=== PATIENT | female | born 1950 | race Caucasian/White ===

== ENCOUNTER → 2017-06-22 10:30 | Outpatient (CLI) | payer MEDICARE, OTHER, SELFPAY ==
--- NOTE | 2017-06-22 10:32 | HPBD_ITS ---
STUDY: DUAL ENERGY X-RAY ABSORPTIOMETRY / DXA REASON FOR EXAM: Female, 66 years old. The patient is postmenopausal. Loss of height of 2 inches. TECHNIQUE: Bone Mineral Density (BMD) measurements of lumbar spine and bilateral hips were obtained. COMPARISON: None. FINDINGS: Lumbar Spine (L1-L4): g/cm2 (1.327) / T-score (1.1) / Z-score (2.7) Findings are suggestive of normal bone density with a low fracture risk. Left Femur Total: g/cm2 (1.042) / T-score (0.3) / Z-score (1.6) Left Femoral Neck: g/cm2 (0.954) / T-score (-0.6) / Z-score (1.0) Right Femur Total: g/cm2 (0.998) / T-score (-0.1) / Z-score (1.3) Right Femoral Neck: g/cm2 (0.955) / T-score (-0.6) / Z-score (1.0) HPBD/Dexa Bone Density Study (HP) IMPRESSION: The patient is considered normal as outlined below according to World Rah Organization (WHO) criteria with a low fracture risk. Reference Information: The T-score is the number of standard deviations above or below the standard which is normal for young adults at their peak bone mineral density. The World Health Organization (WHO) interprets the T-scores as follows: Above -1 Normal bone density Between -1 and -2.5 Osteopenia Equal to / or below -2.5 Osteoporosis As a practical clinical guideline, osteopenia may be graded as follows: Mild -1 through -1.5 Moderate -1.6 through -2.0 Severe -2.1 through -2.4 The Z-score is the number of standard deviations above or below age-matched controls. A Z-score of less than -1.5 would be considered abnormal. References: 1. NIH Osteoporosis and Related Bone Diseases http://www.osteo.org 2. International Society for Clinical Densitometry http://www.iscd.org 3. National Osteoporosis Foundation http://www.nof.org Electronically Signed: Azael Bansal MD at 15:20 EST Tel [phone], Service support ,
--- NOTE | 2017-06-22 10:32 | HPBI_ITS ---
MAMMOGRAPHY - BILATERAL SCREENING REASON FOR EXAM: Female, 66 years old. Routine annual screening examination. PERTINENT HISTORY: Clear breast discharge. TECHNIQUE: Digital bilateral breast rodrigo (3D mammographic acquisition) in the CC and MLO projections. 2-D mediolateral oblique (MLO) and craniocaudad (CC) views of both breasts were obtained. CAD: Full Field Digital Mammography with Computer Added Detection was performed. COMPARISON: No comparison mammograms available at this time. If any prior films become available, an addendum to this report can be generated. FINDINGS: Breast Composition: There are scattered areas of fibroglandular density. There are no dominant masses or suspicious calcifications. Scattered bilateral calcifications. No focal cluster is seen. No other significant abnormalities are identified. HPBI/SCREENING MAMM (CAD), BILAT IMPRESSION: Negative screening mammogram. Yearly followup mammogram recommended. (A) ASSESSMENT CATEGORY: BIRADS Category 2: Benign. A letter regarding these results will be sent to the patient by the facility within 30 days. Approximately 10% of breast cancers are not detected by mammography. A normal mammogram should not delay biopsy of a clinically suspicious abnormality. [id number] Electronically Signed: Azael Bansal MD at 13:29 EST Tel [phone], Service support ,
== END ==
PROVIDERS: Family Provider Family Medicine Geriatric Medicine; PCP Family Medicine Geriatric Medicine; Visit Provider Family Medicine Geriatric Medicine
DX: Z12.31 Encounter for screening mammogram for malignant neoplasm of breast (principal); Z78.0 Asymptomatic menopausal state
CPT/HCPCS: 77063; 77067; 77080

== ENCOUNTER → 2017-08-22 11:04 | Outpatient (CLI) | payer MEDICARE, OTHER, SELFPAY ==
[2017-08-22 12:16] LABS: Absolute Lymphocyte Count 2.46 X10^3/ul (0.83-4.51); Basophil# 0.05 X10^3/uL; Basophil% 0.5 % (0-1); Eosinophil# 0.07 X10^3/uL; Eosinophils% 0.7 % (0-5); Hematocrit 45.7 % (37-47); Hemoglobin 15.3 g/dl (12.0-15.0); Lymphocyte # 2.46 X10^3/ul (4.0); Lymphocyte % 24.4 % (19-41); Mean Corp Hgb Conc 33.5 g/gl (32-36); Mean Corpuscular Hgb 29.8 pg (27.0-32.0); Mean Corpuscular Volume 89.1 fL (81-99); Monocyte# 0.55 X10^3/uL; Monocyte% 5.5 % (0-10); Neutrophil # 6.95 X10^3/uL (2.7-7.7); Neutrophil % 68.8 % (47-70); Platelet Count 275 K/mm3 (150-450); RBC Distribution Width CV 12.8 % (11.6-14.6); RBC Distribution Width SD 41.4 fl (35.1-43.9); Red Blood Count 5.13 M/mm3 (4.2-5.4); White Blood Count 10.1 K/mm3 (4.4-11.0)
[2017-08-22 12:27] LABS: POSITIVE COUNT NO; POSITIVE DIFFERENTIAL NO; POSITIVE MORPHOLOGY NO
[2017-08-22 12:28] LABS: ALB/GLOB Ratio 1.2 RATIO (0.9-2.4); AST(SGOT) 21 U/L (15-37); Alanine Aminotransfer ALT/SGPT 31 U/L (13-56); Albumin, Serum 4.3 g/dL (3.2-5.0); Alkaline Phosphatase 72 U/L (45-117); Anion Gap 11 (5-15); BUN 24 mg/dL (7-18); BUN/Creat Ratio 29.1 RATIO (10-20); Calcium,Total 9.5 mg/dL (8.5-10.1); Chloride 101 mmol/L (98-107); Creatinine, Serum 0.82 mg/dL (0.55-1.02); EST Glomerular Filtration Rate 73 mL/min (>60); Est Glom Filt Rate - Afr Amer 89 mL/min (>60); Globulin 3.6 g/dL (2.2-4.2); Glucose 187 mg/dL (74-106); Potassium 4.2 mmol/L (3.5-5.1); Protein, Total 7.9 g/dL (6.4-8.2); Sodium Level 137 mmol/L (136-145); Thyroid Stim Hormone (TSH) 1.84 uIU/mL (0.358-3.74)
[2017-08-22 12:29] LABS: Vitamin D,25 Hydroxy 43.8 ng/mL (29.95-100.01)
== END ==
PROVIDERS: Family Provider Family Medicine Geriatric Medicine; PCP Family Medicine Geriatric Medicine; Visit Provider Family Medicine Geriatric Medicine
DX: E11.9 Type 2 diabetes mellitus without complications (principal); E55.9 Vitamin D deficiency, unspecified; I10 Essential (primary) hypertension
CPT/HCPCS: 36415; 80053; 82306; 84443; 85025

== ENCOUNTER → 2018-02-06 13:43 | Outpatient (CLI) | payer MEDICARE, OTHER, SELFPAY ==
[2018-02-06 14:58] LABS: Absolute Lymphocyte Count 1.78 X10^3/ul (0.83-4.51); Absolute Neutrophil Count 5.8 X10^3/uL (2.0-7.7); Basophil# 0.03 X10^3/uL; Basophil% 0.4 % (0-1); Eosinophil# 0.04 X10^3/uL; Eosinophils% 0.5 % (0-5); Hematocrit 42.8 % (37-47); Lymphocyte # 1.78 X10^3/ul (4.0); Lymphocyte % 22.3 % (19-41); Mean Corp Hgb Conc 32.7 g/gl (32-36); Mean Corpuscular Volume 88.6 fL (81-99); Mean Platelet Vol. 10.5 fl (6.2-12.0); Monocyte# 0.38 X10^3/uL; Monocyte% 4.8 % (0-10); Neutrophil # 5.76 X10^3/uL (2.7-7.7); Neutrophil % 71.9 % (47-70); Platelet Count 254 K/mm3 (150-450); RBC Distribution Width SD 41.9 fl (35.1-43.9); Red Blood Count 4.83 M/mm3 (4.2-5.4)
[2018-02-06 14:59] LABS: POSITIVE COUNT NO; POSITIVE DIFFERENTIAL NO; POSITIVE MORPHOLOGY NO
[2018-02-06 15:21] LABS: Vitamin D,25 Hydroxy 26.8 ng/mL (29.95-100.01)
[2018-02-06 15:27] LABS: ALB/GLOB Ratio 1.1 RATIO (0.9-2.4); AST(SGOT) 27 U/L (15-37); Alanine Aminotransfer ALT/SGPT 37 U/L (13-56); Albumin, Serum 4.1 g/dL (3.2-5.0); Alkaline Phosphatase 71 U/L (45-117); Anion Gap 11 (5-15); BUN 16 mg/dL (7-18); BUN/Creat Ratio 23.4 RATIO (10-20); Calcium,Total 9.3 mg/dL (8.5-10.1); Chloride 101 mmol/L (98-107); Creatinine, Serum 0.68 mg/dL (0.55-1.02); EST Glomerular Filtration Rate 91 mL/min (>60); Est Glom Filt Rate - Afr Amer 110 mL/min (>60); Globulin 3.6 g/dL (2.2-4.2); Glucose 203 mg/dL (74-106); Potassium 4.2 mmol/L (3.5-5.1); Protein, Total 7.7 g/dL (6.4-8.2); Sodium Level 136 mmol/L (136-145); Thyroid Stim Hormone (TSH) 1.63 uIU/mL (0.358-3.74)
== END ==
PROVIDERS: Family Provider Family Medicine Geriatric Medicine; PCP Family Medicine Geriatric Medicine; Visit Provider Family Medicine Geriatric Medicine
DX: I10 Essential (primary) hypertension (principal); E11.9 Type 2 diabetes mellitus without complications; E55.9 Vitamin D deficiency, unspecified
CPT/HCPCS: 36415; 80053; 82306; 84443; 85025

== ENCOUNTER → 2018-05-25 11:31 | Outpatient (CLI) | payer MEDICARE, OTHER, SELFPAY ==
[2018-05-25 12:48] LABS: Absolute Neutrophil Count 5.4 X10^3/uL (2.0-7.7); Basophil# 0.04 X10^3/uL; Basophil% 0.5 % (0-1); Eosinophil# 0.05 X10^3/uL; Eosinophils% 0.6 % (0-5); Hematocrit 43.3 % (37-47); Hemoglobin 14.5 g/dl (12.0-15.0); Lymphocyte % 26.8 % (19-41); Mean Corp Hgb Conc 33.5 g/gl (32-36); Mean Corpuscular Hgb 29.5 pg (27.0-32.0); Mean Platelet Vol. 10.8 fl (6.2-12.0); Monocyte# 0.49 X10^3/uL; Neutrophil # 5.41 X10^3/uL (2.7-7.7); Neutrophil % 65.9 % (47-70); Platelet Count 241 K/mm3 (150-450); RBC Distribution Width CV 13.1 % (11.6-14.6); RBC Distribution Width SD 41.2 fl (35.1-43.9); Red Blood Count 4.92 M/mm3 (4.2-5.4); White Blood Count 8.2 K/mm3 (4.4-11.0)
[2018-05-25 12:50] LABS: POSITIVE COUNT NO; POSITIVE DIFFERENTIAL NO; POSITIVE MORPHOLOGY NO
[2018-05-25 12:56] LABS: Vitamin D,25 Hydroxy 18.6 ng/mL (29.95-100.01)
[2018-05-25 13:04] LABS: ALB/GLOB Ratio 1.2 RATIO (0.9-2.4); AST(SGOT) 21 U/L (15-37); Alanine Aminotransfer ALT/SGPT 35 U/L (13-56); Albumin, Serum 4.1 g/dL (3.2-5.0); Alkaline Phosphatase 67 U/L (45-117); Anion Gap 11 (5-15); BUN 20 mg/dL (7-18); BUN/Creat Ratio 28.1 RATIO (10-20); Calcium,Total 9.5 mg/dL (8.5-10.1); Chloride 102 mmol/L (98-107); Creatinine, Serum 0.71 mg/dL (0.55-1.02); EST Glomerular Filtration Rate 86 mL/min (>60); Est Glom Filt Rate - Afr Amer 105 mL/min (>60); Globulin 3.5 g/dL (2.2-4.2); Glucose 111 mg/dL (74-106); Potassium 3.8 mmol/L (3.5-5.1); Protein, Total 7.6 g/dL (6.4-8.2); Sodium Level 138 mmol/L (136-145); Thyroid Stim Hormone (TSH) 2.15 uIU/mL (0.358-3.74)
== END ==
PROVIDERS: Family Provider Family Medicine Geriatric Medicine; PCP Family Medicine Geriatric Medicine; Visit Provider Family Medicine Geriatric Medicine
DX: E11.9 Type 2 diabetes mellitus without complications (principal); E55.9 Vitamin D deficiency, unspecified; I10 Essential (primary) hypertension
CPT/HCPCS: 36415; 80053; 82306; 84443; 85025

== ENCOUNTER → 2018-06-08 07:28 | Outpatient (CLI) | payer MEDICARE, OTHER, SELFPAY ==
--- NOTE | 2018-06-08 07:32 | CT_ITS ---
STUDY: LOW DOSE CT LUNG CANCER SCREENING REASON FOR EXAM: Female, 67 years old. Previous smoker, 41 pack-year history RADIATION DOSAGE (If Supplied By Facility): CTDIvol = ( 4.02 ) mGy, DLP = ( 130.39 ) mGycm TECHNIQUE: No contrast was administered. Low dose technique was utilized Nodule measured using lung windows on PACS and/or independent workstation with automated measurement of minimum and maximum diameter. Nodule measurement reported as average diameter rounded to the nearest whole number. Growth is defined as an increase ins size of greater than 1.5 mm. COMPARISON: None. NODULES: Total lung nodules (excluding granulomas): 0 Emphysema: Moderate centrilobular emphysema of the upper lung zones. Scattered groundglass opacities (regional) with subpleural reticulation suggesting early fibrotic lung disease. Mild traction bronchiectasis noted. No honeycombing is seen. Endobronchial lesion: None Aorta: Atherosclerosis but no evidence of thoracic aortic aneurysm. Coronary arteries: Atherosclerosis. Heart: Normal heart size. No pericardial thickening Pulmonary artery: Unremarkable for unenhanced imaging. Mediastinal nodes: No mediastinal or hilar adenopathy. Other chest and abdominal findings: Peripherally calcified calcifications of the left upper abdomen adjacent to the splenic hilum could represent splenic artery aneurysms, measuring approximately 1.1 cm. There are degenerative changes of the thoracic spine. CT/Low Dose CT Lung Screening IMPRESSION: 1. Lung-RADS category 1 - Continue annual screening with LDCT in 12 months. 2. Moderate centrilobular emphysema with early interstitial fibrotic lung disease. 3. Peripheral calcified structures adjacent to the splenic hilum measuring up to 1 cm could represent small splenic artery aneurysms. IMPORTANT NOTES FOR USE: ACR Lung-RADS Version 1.0 Assessment Categories Release Date: August 27, 2013 Category: Coded 0-4 bases on nodule(s) with highest degree of suspicion. Negative screen is defined as categories 1 and 2; a positive screen is defined as categories 3 and 4. Category 3 and 4A nodules that are unchanged on interval CT should be coded as category 2, and individuals returned to screening in 12 months. Category 4X: Category 3 or 4 nodules with additional imaging findings that increase the suspicion of lung cancer, such as spiculation, GGN that doubles in size in 1 year, enlarged lymph notes, etc. Category Modifiers: S (significant finding unrelated to lung cancer) and C (prior history of treated lung cancer) may be added to the 0-4 Lung-RADS Electronically Signed: Carroll Kwon MD at 8:51 EST , Service support ,
== END ==
PROVIDERS: Family Provider Family Medicine Geriatric Medicine; PCP Family Medicine Geriatric Medicine; Referring Provider Family Medicine Geriatric Medicine; Visit Provider Family Medicine Geriatric Medicine
DX: Z87.891 Personal history of nicotine dependence (principal); Z12.2 Encounter for screening for malignant neoplasm of respiratory organs
CPT/HCPCS: G0297

== ENCOUNTER → 2018-08-23 | Outpatient (CLI) | payer MEDICARE, OTHER, SELFPAY ==
[2018-08-23 16:35] LABS: Absolute Lymphocyte Count 2.87 X10^3/ul (0.83-4.51); Absolute Neutrophil Count 7.5 X10^3/uL (2.0-7.7); Basophil# 0.05 X10^3/uL; Basophil% 0.5 % (0-1); Eosinophil# 0.11 X10^3/uL; Lymphocyte # 2.87 X10^3/ul (4.0); Lymphocyte % 25.9 % (19-41); Mean Corp Hgb Conc 32.6 g/gl (32-36); Mean Corpuscular Hgb 28.7 pg (27.0-32.0); Mean Corpuscular Volume 88.1 fL (81-99); Mean Platelet Vol. 10.8 fl (6.2-12.0); Monocyte# 0.56 X10^3/uL; Monocyte% 5.1 % (0-10); Neutrophil # 7.47 X10^3/uL (2.7-7.7); Neutrophil % 67.3 % (47-70); Platelet Count 307 K/mm3 (150-450); RBC Distribution Width CV 13.3 % (11.6-14.6); RBC Distribution Width SD 42.5 fl (35.1-43.9); Red Blood Count 4.88 M/mm3 (4.2-5.4); White Blood Count 11.1 K/mm3 (4.4-11.0)
[2018-08-23 16:41] LABS: POSITIVE COUNT NO; POSITIVE DIFFERENTIAL NO; POSITIVE MORPHOLOGY NO
[2018-08-23 17:02] LABS: Vitamin D,25 Hydroxy 20.3 ng/mL (29.95-100.01)
[2018-08-23 17:29] LABS: ALB/GLOB Ratio 1.2 RATIO (0.9-2.4); AST(SGOT) 25 U/L (15-37); Alanine Aminotransfer ALT/SGPT 41 U/L (13-56); Albumin, Serum 4.2 g/dL (3.2-5.0); Alkaline Phosphatase 73 U/L (45-117); Anion Gap 10 (5-15); BUN 16 mg/dL (7-18); BUN/Creat Ratio 24.1 RATIO (10-20); Calcium,Total 9.4 mg/dL (8.5-10.1); Chloride 104 mmol/L (98-107); Creatinine, Serum 0.66 mg/dL (0.55-1.02); EST Glomerular Filtration Rate 94 mL/min (>60); Est Glom Filt Rate - Afr Amer 114 mL/min (>60); Globulin 3.5 g/dL (2.2-4.2); Glucose 117 mg/dL (74-106); Potassium 3.8 mmol/L (3.5-5.1); Protein, Total 7.7 g/dL (6.4-8.2); Sodium Level 139 mmol/L (136-145); Thyroid Stim Hormone (TSH) 2.66 uIU/mL (0.358-3.74)
== END | disposition home or self-care (01) ==
LOC: POLAB3 14:11
PROVIDERS: Family Provider Family Medicine Geriatric Medicine; PCP Family Medicine Geriatric Medicine; Visit Provider Family Medicine Geriatric Medicine
DX: E11.9 Type 2 diabetes mellitus without complications (principal); E55.9 Vitamin D deficiency, unspecified; I10 Essential (primary) hypertension
CPT/HCPCS: 36415; 80053; 82306; 84443; 85025

== ENCOUNTER → 2018-09-18 | Outpatient (CLI) | payer MEDICARE, OTHER, SELFPAY ==
[2018-09-18 10:33] LABS: Absolute Neutrophil Count 5.9 X10^3/uL (2.0-7.7); Basophil# 0.02 X10^3/uL; Basophil% 0.3 % (0-1); Eosinophil# 0.04 X10^3/uL; Eosinophils% 0.5 % (0-5); Hematocrit 41.5 % (37-47); Hemoglobin 13.8 g/dl (12.0-15.0); Lymphocyte % 18.1 % (19-41); Mean Corp Hgb Conc 33.3 g/gl (32-36); Mean Corpuscular Hgb 28.9 pg (27.0-32.0); Mean Corpuscular Volume 86.8 fL (81-99); Mean Platelet Vol. 10.1 fl (6.2-12.0); Monocyte# 0.35 X10^3/uL; Monocyte% 4.5 % (0-10); Neutrophil # 5.91 X10^3/uL (2.7-7.7); Neutrophil % 76.5 % (47-70); Platelet Count 245 K/mm3 (150-450); RBC Distribution Width CV 13.6 % (11.6-14.6); RBC Distribution Width SD 42.2 fl (35.1-43.9); Red Blood Count 4.78 M/mm3 (4.2-5.4); White Blood Count 7.7 K/mm3 (4.4-11.0)
[2018-09-18 10:36] LABS: POSITIVE COUNT NO; POSITIVE DIFFERENTIAL NO; POSITIVE MORPHOLOGY NO
[2018-09-18 10:43] LABS: International Normalized Ratio 1.1; Partial Thromboplast Time 29.4 Seconds (24.1-36.2); Prothrombin Time (Protime)PT. 13.7 SECONDS (11.7-14.9)
[2018-09-18 11:37] LABS: AST(SGOT) 36 U/L (15-37); Alanine Aminotransfer ALT/SGPT 45 U/L (13-56); Albumin, Serum 3.7 g/dL (3.2-5.0); Alkaline Phosphatase 55 U/L (45-117); Anion Gap 9 (5-15); BUN 19 mg/dL (7-18); Calcium,Total 8.9 mg/dL (8.5-10.1); Chloride 110 mmol/L (98-107); Cholesterol 89 mg/dL (200); Creatinine, Serum 0.91 mg/dL (0.55-1.02); EST Glomerular Filtration Rate 65 mL/min (>60); Est Glom Filt Rate - Afr Amer 79 mL/min (>60); Ferritin 150 ng/mL (8-252); Globulin 3.6 g/dL (2.2-4.2); Glucose 149 mg/dL (74-106); High Density Lipoprotein 41 mg/dL; Iron 70 ug/dL (50-170); Iron Binding Capacity,Total 360 ug/dL (250-450); Potassium 3.8 mmol/L (3.5-5.1); Protein, Total 7.3 g/dL (6.4-8.2); Sodium Level 142 mmol/L (136-145); Thyroid Stim Hormone (TSH) 1.03 uIU/mL (0.358-3.74); Triglycerides 96 mg/dL; Very Low Density Lipoprotein 19 mg/dL (5-40)
[2018-09-18 12:22] LABS: Hemoglobin A1c 7.7 % (4.2-6.3)
[2018-09-21 15:20] LABS: Vitamin B1, Thiamine 253.3 nmol/L (66.5-200.0)
== END | disposition home or self-care (01) ==
PROVIDERS: Family Provider Family Medicine Geriatric Medicine; PCP Family Medicine Geriatric Medicine
DX: E61.1 Iron deficiency (principal); E78.5 Hyperlipidemia, unspecified; R73.9 Hyperglycemia, unspecified; E07.9 Disorder of thyroid, unspecified; E53.8 Deficiency of other specified B group vitamins; E55.9 Vitamin D deficiency, unspecified; R79.1 Abnormal coagulation profile; E51.9 Thiamine deficiency, unspecified
CPT/HCPCS: 36415; 80053; 80061; 82728; 83036; 83540; 83550; 84425; 84443; 85025; 85610; 85730

== ENCOUNTER 2018-09-27 20:48 | Emergency (ER) | payer MEDICARE, OTHER, SELFPAY ==
[2018-09-27 10:17] VITALS: BMI 37.1
[2018-09-27 20:49] VITALS: BP 151/77; PULSE 82; RESP 18; TEMP 36.6; O2SAT 95; BMI 37.2
[2018-09-27 21:05] VITALS: BP 144/93; PULSE 77; RESP 20; O2SAT 95
[2018-09-27] MEDS: Clindamycin HCl 150 MG Capsule 300 MG PO (21:17)
--- NOTE | 2018-09-27 21:24 | ED.VIS.UPPEX ---
History of Present Illness Chief Complaint: Laceration Informant: Patient Occurred: Today - 1300 Mechanism/Context: Injury, Incised Current Severity: Mild Maximum Severity: Moderate Worsened by: Applying powder and wound Relieved by: Eating stop after application of powder Associated Symptoms: Negative for: Parasthesia, Weakness, Loss of Funtion Tetanus Immunization: <5 years Prior similar symptoms: No Recent Illness/Hospitalization: No - Past Medical History (1) Essential (primary) hypertension Status: Chronic (2) HLD (hyperlipidemia) Status: Chronic (3) Morbid obesity Status: Chronic (4) Osteoarthritis Status: Chronic Past Medical History - Allergies and Home Meds Allergies/Adverse Reactions: Allergies No Known Allergies Allergy (Verified 09/27/18 20:48) Primary Care Physician: Matt Hernandez Chi, MD [Primary Care Provider] - Prior records reviewed: Yes Surgical History: appendectomy, - - Lateral tubal ligation Lives: Alone Smoking Status: Former smoker Alcohol: None Review of Systems General: Denies: Chills, Fever, Malaise, Subjective, Sweats, Weight loss, - Skin: Reports: Wounds. Denies: Rash Neurological: Denies: Headache, Weakness, Parasthesia, Numbness, -, - Hematologic: Denies: Easy bruising, Easy bleeding Allergy: Denies: Uticaria, Swelling of the mouth Physical Exam Vital Signs/Narrative: Vital Signs Temp Pulse Resp BP Pulse Ox 09/27/18 21:05 77 20 H 144/93 H 95 09/27/18 20:49 97.9 F 82 18 151/77 H 95 Inital Vital Signs reviewed: Yes Left Wrist: Negative for: Abrasion, Contusion, Deformity, Edema, Hematoma, Limited ROM, - Left Hand: - - 3 cm gaping laceration thenar eminence left hand that appears infected. There is also a clotting factor that patient poured onto the wound noted and the wound is black. There is no evidence of cellulitis. Full active range of motion of the thumb and index finger. Normal two-point discrimination. Capillary refill is normal.. Negative for: Abrasion, Contusion, Deformity, Edema, Hematoma, Limited ROM Left Finger: Negative for: Abrasion, Contusion, Deformity, Edema, Hematoma, Limited ROM, - General: Well nourished, Well developed Head: Normocephalic, Atraumatic Eyes: Perrl, EOMI Cardiovascular: Regular rate, Regular rhythm Respiratory: No distress Neurological: Alert, Oriented x3, Cranial nerves II-XII grossly intact, Normal Strength, Normal Sensation, Normal Gait Psychological: Normal affect, Normal Mood Diagnostic/Tx/Re-eval - Medical Decision Making Patient has a wound which occurred hours before presentation. Because she wore a powder into it the wound is not clean and concern for early infection. There is no neurovascular findings. The wound was cleansed. She received first dose of Clinda mycin department and discharged with prescription Coly-Mycin. She states this cannot be closed for 5 to 7 days. She would need to see a surgeon for delayed repair versus allowing it to granulate in which may take 2 to 4 weeks. ED Disposition - Plan for ED Patient: Disposition: Home or Assisted Living Diagnosis: Laceration of left hand with infection Instructions: ED Laceration Infec Not Sutrd Prescriptions: Clindamycin HCl [Cleocin] 300 mg PO Q6H #20 capsule Referrals: Matt Hernandez Chi, MD [Primary Care Provider] - 2 Days for wound check Additional Instructions: Your prescription was electronically transmitted to [facility] pharmacy located on back [facility].
[2018-09-27 21:51] VITALS: BP 134/92; PULSE 83; RESP 17; O2SAT 98
== END 2018-09-27 21:51 | disposition home or self-care (01) ==
PROVIDERS: Emergency Provider Emergency Medicine; Family Provider Family Medicine Geriatric Medicine; PCP Family Medicine Geriatric Medicine
DX: S61.412A Laceration without foreign body of left hand, initial encounter (principal); L08.9 Local infection of the skin and subcutaneous tissue, unspecified; I10 Essential (primary) hypertension; E66.01 Morbid (severe) obesity due to excess calories; M19.90 Unspecified osteoarthritis, unspecified site; Z87.891 Personal history of nicotine dependence; E78.5 Hyperlipidemia, unspecified; Z79.82 Long term (current) use of aspirin; Z79.899 Other long term (current) drug therapy; W45.8XXA Other foreign body or object entering through skin, initial encounter; Y93.89 Activity, other specified; Y92.89 Other specified places as the place of occurrence of the external cause; Y99.8 Other external cause status
CPT/HCPCS: 99283; A4216

== ENCOUNTER → 2018-10-02 | Outpatient (CLI) | payer MEDICARE, OTHER, SELFPAY ==
[2018-09-27 20:49] VITALS: BMI 37.2
--- NOTE | 2018-10-02 07:16 | CPS ---
Patient states PFT is for pre-op testing which the order states as well. Patient does not want to take the albuterol aerosol if it isn't necessary. Order does not indicate that a bronchodilator needs to be administered nor does it state to have a complete test with bronchodilator.
--- NOTE | 2018-10-03 07:39 | PFT ---
INTRODUCTION: The patient is a 68-year-old female that presents for pulmonary function studies secondary to a diagnosis of shortness of breath. Respiratory therapy reports good patient effort. Bronchodilators were not administered with testing. INTERPRETATION: Forced expiration spirometry demonstrates no evidence of a large airways obstructive ventilatory defect. Spirograms are of good quality and plateau normally. The respiratory flow volume loop appears normal. Body plethysmography revealed normal lung volumes. Diffusing capacity by single breath CO is mildly reduced at 61% of predicted. IMPRESSION: Isolated mild reduction in diffusing capacity, which could be related to an early pulmonary vascular disorder such as pulmonary hypertension. Clinical correlation is recommended.
== END | disposition home or self-care (01) ==
LOC: PSN 06:18
PROVIDERS: Family Provider Family Medicine Geriatric Medicine; PCP Family Medicine Geriatric Medicine; Referring Provider Family Medicine Geriatric Medicine; Visit Provider Family Medicine Geriatric Medicine
DX: R06.02 Shortness of breath (principal)
CPT/HCPCS: 94010; 94726; 94729

== ENCOUNTER → 2018-10-17 | Outpatient (CLI) | payer MEDICARE, OTHER, SELFPAY ==
[2018-09-27 20:49] VITALS: BMI 37.2
--- NOTE | 2018-10-17 14:27 | ECHOD_ITS ---
Reason For Study: SOB Procedure This was a 2D Doppler, Color Flow transthoracic echocardiogram. The study was technically difficult. Exam performed in department. Left Ventricle Normal LV size. Left ventricular systolic function is normal. The estimated ejection fraction is 65 %. There is evidence of diastolic dysfunction. No regional wall motion abnormalities noted. Right Ventricle Normal RV size. Normal systolic function. Atria The left atrium is moderately enlarged. Normal right atrium. No doppler evidence for ASD. Mitral Valve There is mild mitral annular calcification. Extension of the mitral annular calcification onto the posterior mitral valve leaflet. Mild mitral valve stenosis. Trivial mitral valve insufficiency. Tricuspid Valve Normal tricuspid valve. Trivial tricuspid valve insufficiency. Unable to estimate RV systolic pressure/pulmonary artery pressure due to technically difficult study. Aortic Valve Trisinus/trileaflet aortic valve. Mild focal aortic valve calcification. Pulmonic Valve The pulmonic valve is not well visualized. Great Vessels Normal sized aortic root. Pericardium/Pleural No pericardial effusion. MMode/2D Measurements & Calculations LVIDd: 3.1 cm IVSd: 1.2 cm Ao root diam: 3.8 cm LVIDs: 2.1 cm LVPWd: 1.1 cm LA dimension: 3.6 cm RVDd: 3.5 cm FS: 31.9 % LAV(MOD-bp): 77.4 ml LA A4 area: 24.2 cm2 RA A4 area: 18.5 cm2 LAV(MOD-bp) Indexed: 40.6 ml/m2 LAV(MOD-sp2): 77.6 ml LAV(MOD-sp4): 77.7 ml Time Measurements MV dec time: 0.42 sec Doppler Measurements & Calculations MV E max rajesh: 87.9 cm/sec Lat Peak E' Rajesh: 9.7 cm/sec Med Peak E' Rajesh: 5.9 cm/sec MV A max rajesh: 160.2 cm/sec E/E' lat: 9.1 E/E' med: 14.8 MV E/A: 0.55 MV V2 max: 190.7 cm/sec MV P1/2t max rajesh: 110.7 cm/sec Ao V2 max: 151.0 cm/sec MV max P.5 mmHg MV P1/2t: 129.4 msec Ao max P.1 mmHg MV V2 mean: 88.5 cm/sec MV dec slope: 250.7 cm/sec2 MV mean P.8 mmHg MVA(P1/2t): 1.7 cm2 MV V2 VTI: 46.7 cm LV V1 max: 100.8 cm/sec PA V2 max: 99.2 cm/sec LV V1 max P.1 mmHg Interpretation Summary The study was technically difficult. Left ventricular systolic function is normal. The estimated ejection fraction is 65 %. The left atrium is moderately enlarged. There is mild mitral annular calcification. Extension of the mitral annular calcification onto the posterior mitral valve leaflet. Mild mitral valve stenosis. Trivial mitral valve insufficiency. Trivial tricuspid valve insufficiency. Mild focal aortic valve calcification. Unable to estimate RV systolic pressure/pulmonary artery pressure due to technically difficult study. There is evidence of diastolic dysfunction. Ordering Physician: Matt Hernandez Referring Physician: Matt Hernandez Chi Performed By: Moo Navarrete RCS
== END | disposition home or self-care (01) ==
LOC: CVS 14:25
PROVIDERS: Family Provider Family Medicine Geriatric Medicine; PCP Family Medicine Geriatric Medicine; Referring Provider Family Medicine Geriatric Medicine; Visit Provider Family Medicine Geriatric Medicine
DX: R06.02 Shortness of breath (principal)
CPT/HCPCS: 93306

== ENCOUNTER → 2018-11-03 | Outpatient (CLI) | payer MEDICARE, OTHER, SELFPAY ==
[2018-11-03 11:34] LABS: Vitamin B12 707 pg/mL (211-911)
== END | disposition home or self-care (01) ==
PROVIDERS: Family Provider Family Medicine Geriatric Medicine; PCP Family Medicine Geriatric Medicine
DX: E53.8 Deficiency of other specified B group vitamins (principal)
CPT/HCPCS: 36415; 82607

== ENCOUNTER → 2018-11-21 | Outpatient (CLI) | payer MEDICARE, OTHER, SELFPAY ==
[2018-11-21 17:12] LABS: Absolute Lymphocyte Count 2.05 X10^3/uL (0.83-4.51); Absolute Neutrophil Count 6.8 X10^3/uL (2.0-7.7); Basophil# 0.06 X10^3/uL; Basophil% 0.6 % (0-1); Eosinophil# 0.04 X10^3/uL; Eosinophils% 0.4 % (0-5); Hematocrit 42.4 % (37-47); Hemoglobin 13.8 g/dL (12.0-15.0); Lymphocyte # 2.05 X10^3/ul (4.0); Lymphocyte % 21.6 % (19-41); Mean Corp Hgb Conc 32.5 g/dL (32-36); Mean Corpuscular Hgb 29.5 pg (27.0-32.0); Mean Corpuscular Volume 90.6 fL (81-99); Mean Platelet Vol. 10.9 fl (6.2-12.0); Monocyte# 0.52 X10^3/uL; Monocyte% 5.5 % (0-10); NRBC Flagged by Analyzer 0 % (0-5); Neutrophil # 6.78 X10^3/uL (2.7-7.7); Neutrophil % 71.5 % (47-70); Platelet Count 230 K/mm3 (150-450); RBC Distribution Width CV 13.2 % (11.6-14.6); RBC Distribution Width SD 43.5 fl (35.1-43.9); Red Blood Count 4.68 M/mm3 (4.2-5.4); White Blood Count 9.5 K/mm3 (4.4-11.0)
[2018-11-21 17:56] LABS: ALB/GLOB Ratio 1.1 RATIO (0.9-2.4); AST(SGOT) 23 U/L (15-37); Alanine Aminotransfer ALT/SGPT 30 U/L (13-56); Albumin, Serum 3.9 g/dL (3.2-5.0); Alkaline Phosphatase 63 U/L (45-117); Anion Gap 12 (5-15); BUN 22 mg/dL (7-18); Calcium,Total 9.2 mg/dL (8.5-10.1); Chloride 107 mmol/L (98-107); Creatinine, Serum 0.76 mg/dL (0.55-1.02); EST Glomerular Filtration Rate 80 mL/min (>60); Est Glom Filt Rate - Afr Amer 97 mL/min (>60); Globulin 3.4 g/dL (2.2-4.2); Glucose 212 mg/dL (74-106); Potassium 3.9 mmol/L (3.5-5.1); Protein, Total 7.3 g/dL (6.4-8.2); Sodium Level 140 mmol/L (136-145); Thyroid Stim Hormone (TSH) 2.15 uIU/mL (0.358-3.74)
[2018-11-21 18:09] LABS: Vitamin D,25 Hydroxy 17.4 ng/mL (29.95-100.01)
== END | disposition home or self-care (01) ==
LOC: POLAB3 08:46
PROVIDERS: Family Provider Family Medicine Geriatric Medicine; PCP Family Medicine Geriatric Medicine; Visit Provider Family Medicine Geriatric Medicine
DX: E11.9 Type 2 diabetes mellitus without complications (principal); E55.9 Vitamin D deficiency, unspecified; I10 Essential (primary) hypertension
CPT/HCPCS: 36415; 80053; 82306; 84443; 85025

== ENCOUNTER → 2019-01-11 | Outpatient (CLI) | payer MEDICARE, OTHER, SELFPAY ==
--- NOTE | 2019-01-11 10:15 | RAD_ITS ---
STUDY: X-RAY CHEST REASON FOR EXAM: Female, 68 years old. Sleep apnea. TECHNIQUE: PA and lateral views of the chest. COMPARISON: Chest CT, June 08, 2018. FINDINGS: The lungs are hyperexpanded with chronic interstitial changes. There is no new mass or infiltrate. There is no demonstrated pleural abnormality. Normal size heart. Normal mediastinum and gertrude. Normal visualized pulmonary arteries. Normal visualized aortic arch and descending thoracic aorta. There is mild levoscoliosis of the thoracic spine with degenerative changes. There is degenerative osteoarthritis of the bilateral shoulders. There is no demonstrated abnormality of the visualized soft tissue structures of the upper abdomen. RAD/Chest PA and Lateral IMPRESSION: COPD versus emphysema. There is no acute pulmonary disease. Electronically Signed: Anson Whitman DO at 21:32 EDT Tel [phone], Service support ,
== END | disposition home or self-care (01) ==
LOC: RAD 10:01
PROVIDERS: Family Provider Family Medicine Geriatric Medicine; PCP Family Medicine Geriatric Medicine
DX: G47.30 Sleep apnea, unspecified (principal); I10 Essential (primary) hypertension
CPT/HCPCS: 71046

== ENCOUNTER → 2019-02-21 | Outpatient (CLI) | payer MEDICARE, OTHER, SELFPAY ==
[2019-02-21 12:50] LABS: Absolute Lymphocyte Count 2.24 X10^3/uL (0.83-4.51); Absolute Neutrophil Count 6.9 X10^3/uL (2.0-7.7); Basophil# 0.06 X10^3/uL; Basophil% 0.6 % (0-1); Eosinophil# 0.08 X10^3/uL; Eosinophils% 0.8 % (0-5); Hematocrit 42.2 % (37-47); Hemoglobin 13.8 g/dL (12.0-15.0); Lymphocyte # 2.24 X10^3/ul (4.0); Lymphocyte % 22.7 % (19-41); Mean Corp Hgb Conc 32.7 g/dL (32-36); Mean Corpuscular Hgb 28.7 pg (27.0-32.0); Mean Corpuscular Volume 87.7 fL (81-99); Mean Platelet Vol. 11.2 fl (6.2-12.0); Monocyte% 6.1 % (0-10); NRBC Flagged by Analyzer 0 % (0-5); Neutrophil # 6.85 X10^3/uL (2.7-7.7); Neutrophil % 69.6 % (47-70); Platelet Count 305 K/mm3 (150-450); RBC Distribution Width CV 13.2 % (11.6-14.6); RBC Distribution Width SD 41.8 fl (35.1-43.9); Red Blood Count 4.81 M/mm3 (4.2-5.4); White Blood Count 9.9 K/mm3 (4.4-11.0)
[2019-02-21 13:13] LABS: ALB/GLOB Ratio 1.4 RATIO (0.9-2.4); AST(SGOT) 26 U/L (15-37); Alanine Aminotransfer ALT/SGPT 39 U/L (13-56); Albumin, Serum 4.3 g/dL (3.2-5.0); Alkaline Phosphatase 55 U/L (45-117); Anion Gap 12 (5-15); BUN 14 mg/dL (7-18); BUN/Creat Ratio 17.3 RATIO (10-20); Calcium,Total 9.5 mg/dL (8.5-10.1); Chloride 106 mmol/L (98-107); Creatinine, Serum 0.81 mg/dL (0.55-1.02); EST Glomerular Filtration Rate 75 mL/min (>60); Est Glom Filt Rate - Afr Amer 90 mL/min (>60); Globulin 3.1 g/dL (2.2-4.2); Glucose 108 mg/dL (74-106); Potassium 3.9 mmol/L (3.5-5.1); Protein, Total 7.4 g/dL (6.4-8.2); Sodium Level 140 mmol/L (136-145); Thyroid Stim Hormone (TSH) 2.38 uIU/mL (0.358-3.74)
== END | disposition home or self-care (01) ==
LOC: POLAB3 11:42
PROVIDERS: Family Provider Family Medicine Geriatric Medicine; PCP Family Medicine Geriatric Medicine; Visit Provider Family Medicine Geriatric Medicine
DX: E11.9 Type 2 diabetes mellitus without complications (principal); E55.9 Vitamin D deficiency, unspecified; I10 Essential (primary) hypertension
CPT/HCPCS: 36415; 80053; 82306; 84443; 85025

== ENCOUNTER → 2019-05-22 09:27 | Outpatient (CLI) | payer MEDICARE, OTHER, SELFPAY ==
[2019-05-22 09:58] LABS: Absolute Lymphocyte Count 1.21 X10^3/uL (0.83-4.51); Absolute Neutrophil Count 4.3 X10^3/uL (2.0-7.7); Basophil# 0.04 X10^3/uL; Basophil% 0.7 % (0-1); Eosinophil# 0.02 X10^3/uL; Eosinophils% 0.3 % (0-5); Hemoglobin 13.6 g/dL (12.0-15.0); Lymphocyte # 1.21 X10^3/ul (4.0); Lymphocyte % 20.6 % (19-41); Mean Corp Hgb Conc 32.4 g/dL (32-36); Mean Corpuscular Volume 89.6 fL (81-99); Mean Platelet Vol. 10.6 fl (6.2-12.0); Monocyte# 0.31 X10^3/uL; Monocyte% 5.3 % (0-10); NRBC Flagged by Analyzer 0 % (0-5); Neutrophil # 4.27 X10^3/uL (2.7-7.7); Neutrophil % 72.9 % (47-70); Platelet Count 186 K/mm3 (150-450); RBC Distribution Width CV 12.7 % (11.6-14.6); RBC Distribution Width SD 41.2 fl (35.1-43.9); Red Blood Count 4.69 M/mm3 (4.2-5.4); White Blood Count 5.9 K/mm3 (4.4-11.0)
[2019-05-22 10:39] LABS: PTHIN 49.3 pg/mL (18.4-80.1)
[2019-05-22 10:40] LABS: Vitamin B12 493 pg/mL (211-911); Vitamin D,25 Hydroxy 26.2 ng/mL (29.95-100.01)
[2019-05-22 11:22] LABS: ALB/GLOB Ratio 1.2 RATIO (0.9-2.4); AST(SGOT) 17 U/L (15-37); Alanine Aminotransfer ALT/SGPT 24 U/L (13-56); Albumin, Serum 3.9 g/dL (3.2-5.0); Alkaline Phosphatase 88 U/L (45-117); Anion Gap 6 (5-15); BUN 14 mg/dL (7-18); BUN/Creat Ratio 18.8 RATIO (10-20); Calcium,Total 9.4 mg/dL (8.5-10.1); Chloride 104 mmol/L (98-107); Creatinine, Serum 0.74 mg/dL (0.55-1.02); EST Glomerular Filtration Rate 82 mL/min (>60); Est Glom Filt Rate - Afr Amer 99 mL/min (>60); Ferritin 110 ng/mL (8-252); Globulin 3.2 g/dL (2.2-4.2); Glucose 133 mg/dL (74-106); Iron 65 ug/dL (50-170); Iron Binding Capacity,Total 323 ug/dL (250-450); Potassium 3.7 mmol/L (3.5-5.1); Protein, Total 7.1 g/dL (6.4-8.2); Sodium Level 136 mmol/L (136-145)
[2019-05-25 03:06] LABS: Vitamin B1, Thiamine 135.2 nmol/L (66.5-200.0)
[2019-05-25 09:22] LABS: Copper, Serum or Plasma 108 ug/dL (72-166)
== END ==
PROVIDERS: PCP Family Medicine Geriatric Medicine; Visit Provider Family Medicine Geriatric Medicine
DX: E55.9 Vitamin D deficiency, unspecified (principal); E53.8 Deficiency of other specified B group vitamins; Z98.84 Bariatric surgery status; D64.9 Anemia, unspecified; K90.9 Intestinal malabsorption, unspecified
CPT/HCPCS: 36415; 80053; 82306; 82525; 82607; 82728; 82746; 83540; 83550; 83970; 84425; 85025

== ENCOUNTER → 2019-10-16 11:02 | Outpatient (CLI) | payer MEDICARE, OTHER, SELFPAY | PROVIDERS: PCP Family Medicine Geriatric Medicine | DX: E55.9 Vitamin D deficiency, unspecified (principal) | CPT/HCPCS: 36415; 82306 ==

== ENCOUNTER → 2019-11-28 13:11 | Outpatient (CLI) | payer MEDICARE, OTHER, SELFPAY ==
[2019-11-28 16:37] LABS: Absolute Lymphocyte Count 1.82 X10^3/uL (0.83-4.51); Absolute Neutrophil Count 3.8 X10^3/uL (2.0-7.7); Basophil# 0.05 X10^3/uL; Basophil% 0.8 % (0-1); Eosinophils% 1.6 % (0-5); Hematocrit 40.4 % (37-47); Hemoglobin 13.1 g/dL (12.0-15.0); Lymphocyte # 1.82 X10^3/ul (4.0); Lymphocyte % 29.5 % (19-41); Mean Corp Hgb Conc 32.4 g/dL (32-36); Mean Corpuscular Hgb 29.4 pg (27.0-32.0); Mean Corpuscular Volume 90.8 fL (81-99); Mean Platelet Vol. 10.6 fl (6.2-12.0); Monocyte# 0.38 X10^3/uL; Monocyte% 6.2 % (0-10); NRBC Flagged by Analyzer 0 % (0-5); Neutrophil % 61.7 % (47-70); Platelet Count 228 K/mm3 (150-450); RBC Distribution Width CV 12.8 % (11.6-14.6); RBC Distribution Width SD 42.1 fl (35.1-43.9); Red Blood Count 4.45 M/mm3 (4.2-5.4); White Blood Count 6.2 K/mm3 (4.4-11.0)
[2019-11-28 16:52] LABS: Vitamin D,25 Hydroxy 53.1 ng/mL
[2019-11-28 17:00] LABS: ALB/GLOB Ratio 1.3 RATIO (0.9-2.4); AST(SGOT) 18 U/L (15-37); Alanine Aminotransfer ALT/SGPT 33 U/L (13-56); Alkaline Phosphatase 93 U/L (45-117); Anion Gap 5 (5-15); BUN 19 mg/dL (7-18); BUN/Creat Ratio 30.6 RATIO (10-20); Chloride 108 mmol/L (98-107); Creatinine, Serum 0.62 mg/dL (0.55-1.02); EST Glomerular Filtration Rate 101 mL/min (>60); Est Glom Filt Rate - Afr Amer 122 mL/min (>60); Globulin 3.1 g/dL (2.2-4.2); Glucose 116 mg/dL (74-106); Potassium 4.2 mmol/L (3.5-5.1); Protein, Total 7.1 g/dL (6.4-8.2); Sodium Level 139 mmol/L (136-145)
== END ==
PROVIDERS: PCP Family Medicine Geriatric Medicine; Visit Provider Family Medicine Geriatric Medicine
DX: E11.9 Type 2 diabetes mellitus without complications (principal); E55.9 Vitamin D deficiency, unspecified; I10 Essential (primary) hypertension
CPT/HCPCS: 36415; 80053; 82306; 84443; 85025

== ENCOUNTER → 2020-05-29 12:59 | Outpatient (CLI) | payer MEDICARE, OTHER, SELFPAY ==
[2020-05-29 17:27] LABS: Absolute Lymphocyte Count 1.31 X10^3/uL (0.83-4.51); Absolute Neutrophil Count 4.8 X10^3/uL (2.0-7.7); Basophil# 0.05 X10^3/uL; Basophil% 0.8 % (0-1); Eosinophil# 0.07 X10^3/uL; Eosinophils% 1.1 % (0-5); Hematocrit 43.4 % (37-47); Hemoglobin 14.2 g/dL (12.0-15.0); Lymphocyte # 1.31 X10^3/ul (4.0); Lymphocyte % 19.8 % (19-41); Mean Corp Hgb Conc 32.7 g/dL (32-36); Mean Corpuscular Hgb 28.9 pg (27.0-32.0); Mean Corpuscular Volume 88.2 fL (81-99); Mean Platelet Vol. 10.7 fl (6.2-12.0); Monocyte# 0.38 X10^3/uL; Monocyte% 5.8 % (0-10); NRBC Flagged by Analyzer 0 % (0-5); Neutrophil # 4.78 X10^3/uL (2.7-7.7); Neutrophil % 72.3 % (47-70); Platelet Count 229 K/mm3 (150-450); RBC Distribution Width CV 12.6 % (11.6-14.6); RBC Distribution Width SD 40.7 fl (35.1-43.9); Red Blood Count 4.92 M/mm3 (4.2-5.4); White Blood Count 6.6 K/mm3 (4.4-11.0)
[2020-05-29 17:54] LABS: Vitamin D,25 Hydroxy 31.9 ng/mL
[2020-05-29 17:56] LABS: ALB/GLOB Ratio 1.2 RATIO (0.9-2.4); AST(SGOT) 21 U/L (15-37); Alanine Aminotransfer ALT/SGPT 36 U/L (13-56); Albumin, Serum 4.1 g/dL (3.2-5.0); Alkaline Phosphatase 114 U/L (45-117); Anion Gap 10 (5-15); BUN 17 mg/dL (7-18); BUN/Creat Ratio 24.3 RATIO (10-20); Calcium,Total 8.9 mg/dL (8.5-10.1); Chloride 103 mmol/L (98-107); EST Glomerular Filtration Rate 88 mL/min (>60); Est Glom Filt Rate - Afr Amer 106 mL/min (>60); Ferritin 76 ng/mL (8-252); Globulin 3.5 g/dL (2.2-4.2); Glucose 180 mg/dL (74-106); Iron 60 ug/dL (50-170); Iron Binding Capacity,Total 360 ug/dL (250-450); PERCENT IRON SATURATION 16.7 % (15.0-55.0); Potassium 3.9 mmol/L (3.5-5.1); Protein, Total 7.6 g/dL (6.4-8.2); Sodium Level 137 mmol/L (136-145); Thyroid Stim Hormone (TSH) 1.55 uIU/mL (0.358-3.74)
[2020-05-29 18:39] LABS: Vitamin B12 > 2000 pg/mL (211-911)
[2020-05-30 08:06] LABS: PTHIN 66.3 pg/mL (18.4-80.1)
[2020-05-30 09:29] LABS: Hemoglobin A1c 7.5 % (3.8-5.6)
== END ==
PROVIDERS: PCP Family Medicine Geriatric Medicine; Visit Provider Family Medicine Geriatric Medicine
DX: E11.9 Type 2 diabetes mellitus without complications (principal); I10 Essential (primary) hypertension; E55.9 Vitamin D deficiency, unspecified
CPT/HCPCS: 36415; 80053; 82306; 82525; 82607; 82728; 82746; 83036; 83540; 83550; 83970; 84425; 84443; 85025

== ENCOUNTER → 2020-09-01 10:42 | Outpatient (CLI) | payer MEDICARE, SELFPAY ==
[2020-09-01 11:36] LABS: Absolute Lymphocyte Count 1.47 X10^3/uL (0.83-4.51); Absolute Neutrophil Count 4.4 X10^3/uL (2.0-7.7); Basophil# 0.05 X10^3/uL; Basophil% 0.8 % (0-1); Eosinophil# 0.07 X10^3/uL; Eosinophils% 1.1 % (0-5); Hemoglobin 14.3 g/dL (12.0-15.0); Lymphocyte # 1.47 X10^3/ul (0.83-4.51); Lymphocyte % 23.3 % (19-41); Mean Corp Hgb Conc 33.3 g/dL (32-36); Mean Corpuscular Hgb 28.8 pg (27.0-32.0); Mean Corpuscular Volume 86.5 fL (81-99); Mean Platelet Vol. 10.4 fl (6.2-12.0); Monocyte# 0.35 X10^3/uL; Monocyte% 5.5 % (0-10); NRBC Flagged by Analyzer 0 % (0-5); Neutrophil # 4.37 X10^3/uL (2.7-7.7); Neutrophil % 69.1 % (47-70); Platelet Count 271 K/mm3 (150-450); RBC Distribution Width CV 12.6 % (11.6-14.6); RBC Distribution Width SD 39.5 fl (35.1-43.9); Red Blood Count 4.97 M/mm3 (4.2-5.4); White Blood Count 6.3 K/mm3 (4.4-11.0)
[2020-09-01 11:54] LABS: Vitamin D,25 Hydroxy 38.5 ng/mL
[2020-09-01 12:11] LABS: ALB/GLOB Ratio 1.1 RATIO (0.9-2.4); AST(SGOT) 24 U/L (15-37); Alanine Aminotransfer ALT/SGPT 38 U/L (13-56); Albumin, Serum 3.9 g/dL (3.2-5.0); Alkaline Phosphatase 114 U/L (45-117); Anion Gap 7 (5-15); BUN 9 mg/dL (7-18); BUN/Creat Ratio 13.4 RATIO (10-20); Chloride 104 mmol/L (98-107); Creatinine, Serum 0.67 mg/dL (0.55-1.02); EST Glomerular Filtration Rate 92 mL/min (>60); Est Glom Filt Rate - Afr Amer 112 mL/min (>60); Globulin 3.5 g/dL (2.2-4.2); Glucose 180 mg/dL (74-106); Potassium 4.3 mmol/L (3.5-5.1); Protein, Total 7.4 g/dL (6.4-8.2); Sodium Level 138 mmol/L (136-145); Thyroid Stim Hormone (TSH) 2.16 uIU/mL (0.358-3.74)
== END ==
PROVIDERS: PCP Family Medicine Geriatric Medicine; Visit Provider Family Medicine Geriatric Medicine
DX: E11.9 Type 2 diabetes mellitus without complications (principal); E55.9 Vitamin D deficiency, unspecified; I10 Essential (primary) hypertension
CPT/HCPCS: 36415; 80053; 82306; 84443; 85025

== ENCOUNTER → 2020-11-27 13:22 | Outpatient (CLI) | payer MEDICARE, SELFPAY ==
[2020-11-27 15:16] LABS: Absolute Lymphocyte Count 1.62 X10^3/uL (0.83-4.51); Absolute Neutrophil Count 3.5 X10^3/uL (2.0-7.7); Basophil# 0.05 X10^3/uL; Basophil% 0.9 % (0-1); Eosinophils% 1.8 % (0-5); Hematocrit 42.1 % (37-47); Lymphocyte # 1.62 X10^3/ul (0.83-4.51); Lymphocyte % 28.7 % (19-41); Mean Corp Hgb Conc 33.3 g/dL (32-36); Mean Corpuscular Hgb 29.2 pg (27.0-32.0); Mean Corpuscular Volume 87.9 fL (81-99); Mean Platelet Vol. 10.4 fl (6.2-12.0); Monocyte# 0.41 X10^3/uL; Monocyte% 7.3 % (0-10); NRBC Flagged by Analyzer 0 % (0-5); Neutrophil # 3.45 X10^3/uL (2.7-7.7); Neutrophil % 60.9 % (47-70); Platelet Count 245 K/mm3 (150-450); RBC Distribution Width CV 12.7 % (11.6-14.6); RBC Distribution Width SD 41.1 fl (35.1-43.9); Red Blood Count 4.79 M/mm3 (4.2-5.4); White Blood Count 5.7 K/mm3 (4.4-11.0)
[2020-11-27 15:31] LABS: Vitamin D,25 Hydroxy 22.6 ng/mL
[2020-11-27 15:43] LABS: ALB/GLOB Ratio 1.2 RATIO (0.9-2.4); AST(SGOT) 22 U/L (15-37); Alanine Aminotransfer ALT/SGPT 37 U/L (13-56); Alkaline Phosphatase 98 U/L (45-117); Anion Gap 7 (5-15); BUN 13 mg/dL (7-18); BUN/Creat Ratio 23.8 RATIO (10-20); Calcium,Total 8.7 mg/dL (8.5-10.1); Chloride 105 mmol/L (98-107); Creatinine, Serum 0.55 mg/dL (0.55-1.02); EST Glomerular Filtration Rate 117 mL/min (>60); Est Glom Filt Rate - Afr Amer 141 mL/min (>60); Globulin 3.3 g/dL (2.2-4.2); Glucose 125 mg/dL (74-106); Potassium 4.2 mmol/L (3.5-5.1); Protein, Total 7.3 g/dL (6.4-8.2); Sodium Level 140 mmol/L (136-145); Thyroid Stim Hormone (TSH) 1.85 uIU/mL (0.358-3.74)
== END ==
PROVIDERS: PCP Family Medicine Geriatric Medicine; Visit Provider Family Medicine Geriatric Medicine
DX: E11.9 Type 2 diabetes mellitus without complications (principal); E55.9 Vitamin D deficiency, unspecified; I10 Essential (primary) hypertension
CPT/HCPCS: 36415; 80053; 82306; 84443; 85025

== ENCOUNTER 2021-05-28 13:27 | Outpatient (CLI) | payer MEDICARE, SELFPAY ==
[2021-05-28 17:27] LABS: Absolute Neutrophil Count 3.7 X10^3/uL (2.0-7.7); Basophil# 0.03 X10^3/uL; Basophil% 0.5 % (0-1); Eosinophil# 0.04 X10^3/uL; Eosinophils% 0.7 % (0-5); Hematocrit 40.2 % (37-47); Hemoglobin 13.1 g/dL (12.0-15.0); Lymphocyte % 26.3 % (19-41); Mean Corp Hgb Conc 32.6 g/dL (32-36); Mean Corpuscular Volume 89.1 fL (81-99); Monocyte# 0.39 X10^3/uL; Monocyte% 6.8 % (0-10); NRBC Flagged by Analyzer 0 % (0-5); Neutrophil # 3.73 X10^3/uL (2.7-7.7); Neutrophil % 65.5 % (47-70); Platelet Count 221 K/mm3 (150-450); RBC Distribution Width CV 12.9 % (11.6-14.6); RBC Distribution Width SD 42.2 fl (35.1-43.9); Red Blood Count 4.51 M/mm3 (4.2-5.4); White Blood Count 5.7 K/mm3 (4.4-11.0)
[2021-05-28 18:05] LABS: Vitamin D,25 Hydroxy 30.4 ng/mL
[2021-05-28 18:14] LABS: ALB/GLOB Ratio 1.2 RATIO (0.9-2.4); AST(SGOT) 21 U/L (15-37); Alanine Aminotransfer ALT/SGPT 28 U/L (13-56); Albumin, Serum 3.9 g/dL (3.2-5.0); Alkaline Phosphatase 95 U/L (45-117); Anion Gap 8 (5-15); BUN 14 mg/dL (7-18); BUN/Creat Ratio 21.7 RATIO (10-20); Calcium,Total 8.6 mg/dL (8.5-10.1); Chloride 108 mmol/L (98-107); Creatinine, Serum 0.64 mg/dL (0.55-1.02); EST Glomerular Filtration Rate 96 mL/min (>60); Est Glom Filt Rate - Afr Amer 116 mL/min (>60); Globulin 3.2 g/dL (2.2-4.2); Glucose 200 mg/dL (74-106); Potassium 3.8 mmol/L (3.5-5.1); Protein, Total 7.1 g/dL (6.4-8.2); Sodium Level 139 mmol/L (136-145); Thyroid Stim Hormone (TSH) 1.29 uIU/mL (0.358-3.74)
== END 2021-05-28 23:59 | disposition short-term general hospital (02) ==
LOC: POLAB3 13:28
PROVIDERS: PCP Family Medicine Geriatric Medicine; Visit Provider Family Medicine Geriatric Medicine
DX: E11.9 Type 2 diabetes mellitus without complications (principal); E55.9 Vitamin D deficiency, unspecified; I10 Essential (primary) hypertension
CPT/HCPCS: 36415; 80053; 82306; 84443; 85025

== ENCOUNTER → 2022-05-31 | Outpatient (CLI) | payer MEDICARE, SELFPAY ==
[2022-05-31 17:16] LABS: Absolute Lymphocyte Count 1.86 X10^3/uL (0.83-4.51); Absolute Neutrophil Count 4.6 X10^3/uL (2.0-7.7); Basophil# 0.05 X10^3/uL; Basophil% 0.7 % (0-1); Eosinophil# 0.07 X10^3/uL; Hematocrit 42.3 % (37-47); Hemoglobin 13.9 g/dL (12.0-15.0); Lymphocyte # 1.86 X10^3/ul (0.83-4.51); Lymphocyte % 26.4 % (19-41); Mean Corp Hgb Conc 32.9 g/dL (32-36); Mean Corpuscular Hgb 28.8 pg (27.0-32.0); Mean Corpuscular Volume 87.8 fL (81-99); Mean Platelet Vol. 10.5 fl (6.2-12.0); Monocyte# 0.43 X10^3/uL; Monocyte% 6.1 % (0-10); NRBC Flagged by Analyzer 0 % (0-5); Neutrophil # 4.61 X10^3/uL (2.7-7.7); Neutrophil % 65.5 % (47-70); Platelet Count 262 K/mm3 (150-450); RBC Distribution Width CV 12.6 % (11.6-14.6); RBC Distribution Width SD 40.3 fl (35.1-43.9); Red Blood Count 4.82 M/mm3 (4.2-5.4)
[2022-05-31 17:22] LABS: Vitamin D,25 Hydroxy 22.9 ng/mL
[2022-05-31 17:40] LABS: ALB/GLOB Ratio 1.1 RATIO (0.9-2.4); AST(SGOT) 21 U/L (15-37); Alanine Aminotransfer ALT/SGPT 28 U/L (13-56); Albumin, Serum 3.9 g/dL (3.2-5.0); Alkaline Phosphatase 90 U/L (45-117); Anion Gap 11 (5-15); BUN 18 mg/dL (7-18); BUN/Creat Ratio 27.5 RATIO (10-20); Calcium,Total 9.2 mg/dL (8.5-10.1); Chloride 105 mmol/L (98-107); Creatinine, Serum 0.65 mg/dL (0.55-1.02); EST Glomerular Filtration Rate 94 mL/min (>60); Est Glom Filt Rate - Afr Amer 114 mL/min (>60); Globulin 3.5 g/dL (2.2-4.2); Glucose 172 mg/dL (74-106); Potassium 4.2 mmol/L (3.5-5.1); Protein, Total 7.4 g/dL (6.4-8.2); Sodium Level 139 mmol/L (136-145); Thyroid Stim Hormone (TSH) 1.76 uIU/mL (0.358-3.74)
== END | disposition home or self-care (01) ==
LOC: POLAB3 13:42
PROVIDERS: PCP Family Medicine Geriatric Medicine; Visit Provider Family Medicine Geriatric Medicine
DX: E55.9 Vitamin D deficiency, unspecified (principal); E11.65 Type 2 diabetes mellitus with hyperglycemia; I10 Essential (primary) hypertension
CPT/HCPCS: 36415; 80053; 82306; 84443; 85025

== ENCOUNTER → 2022-09-02 | Outpatient (CLI) | payer MEDICARE, SELFPAY ==
[2022-09-02 12:00] LABS: Absolute Lymphocyte Count 1.94 X10^3/uL (0.83-4.51); Basophil# 0.09 X10^3/uL; Basophil% 1.2 % (0-1); Eosinophil# 0.12 X10^3/uL; Eosinophils% 1.6 % (0-5); Hematocrit 41.5 % (37-47); Hemoglobin 13.1 g/dL (12.0-15.0); Lymphocyte # 1.94 X10^3/ul (0.83-4.51); Lymphocyte % 25.5 % (19-41); Mean Corp Hgb Conc 31.6 g/dL (32-36); Mean Corpuscular Volume 88.7 fL (81-99); Mean Platelet Vol. 9.6 fl (6.2-12.0); Monocyte% 6.6 % (0-10); NRBC Flagged by Analyzer 0 % (0-5); Neutrophil # 4.95 X10^3/uL (2.7-7.7); Neutrophil % 64.8 % (47-70); Platelet Count 281 K/mm3 (150-450); RBC Distribution Width SD 41.5 fl (35.1-43.9); Red Blood Count 4.68 M/mm3 (4.2-5.4); White Blood Count 7.6 K/mm3 (4.4-11.0)
[2022-09-02 12:41] LABS: Vitamin D,25 Hydroxy 30.8 ng/mL
[2022-09-02 12:51] LABS: ALB/GLOB Ratio 1.1 RATIO (0.9-2.4); AST(SGOT) 17 U/L (15-37); Alanine Aminotransfer ALT/SGPT 21 U/L (13-56); Albumin, Serum 3.8 g/dL (3.2-5.0); Alkaline Phosphatase 79 U/L (45-117); Anion Gap 7 (5-15); BUN 16 mg/dL (7-18); BUN/Creat Ratio 28.9 RATIO (10-20); Calcium,Total 9.1 mg/dL (8.5-10.1); Chloride 106 mmol/L (98-107); Creatinine, Serum 0.55 mg/dL (0.55-1.02); EST Glomerular Filtration Rate 114 mL/min (>60); Est Glom Filt Rate - Afr Amer 138 mL/min (>60); Globulin 3.6 g/dL (2.2-4.2); Glucose 140 mg/dL (74-106); Potassium 4.2 mmol/L (3.5-5.1); Protein, Total 7.4 g/dL (6.4-8.2); Sodium Level 139 mmol/L (136-145); Thyroid Stim Hormone (TSH) 1.04 uIU/mL (0.358-3.74)
== END | disposition home or self-care (01) ==
LOC: LAB 11:46
PROVIDERS: PCP Family Medicine Geriatric Medicine; Referring Provider Family Medicine Geriatric Medicine; Visit Provider Family Medicine Geriatric Medicine
DX: E11.9 Type 2 diabetes mellitus without complications (principal); I10 Essential (primary) hypertension; E55.9 Vitamin D deficiency, unspecified
CPT/HCPCS: 36415; 80053; 82306; 84443; 85025

== ENCOUNTER 2022-11-29 17:30 | Outpatient (RCR) | payer SELFPAY | END 2022-11-29 23:59 | LOC: NS 17:30 | PROVIDERS: PCP Family Medicine Geriatric Medicine | DX: Z71.3 Dietary counseling and surveillance (principal) ==

== ENCOUNTER → 2022-12-02 | Outpatient (CLI) | payer BC, SELFPAY ==
[2022-12-02 13:17] LABS: Absolute Lymphocyte Count 2.24 X10^3/uL (0.83-4.51); Absolute Neutrophil Count 5.6 X10^3/uL (2.0-7.7); Basophil# 0.05 X10^3/uL; Basophil% 0.6 % (0-1); Eosinophils% 1.2 % (0-5); Hematocrit 40.4 % (37-47); Hemoglobin 13.5 g/dL (12.0-15.0); Lymphocyte # 2.24 X10^3/ul (0.83-4.51); Lymphocyte % 26.3 % (19-41); Mean Corp Hgb Conc 33.4 g/dL (32-36); Mean Corpuscular Hgb 28.6 pg (27.0-32.0); Mean Corpuscular Volume 85.6 fL (81-99); Mean Platelet Vol. 10.7 fl (6.2-12.0); Monocyte# 0.51 X10^3/uL; NRBC Flagged by Analyzer 0 % (0-5); Neutrophil # 5.62 X10^3/uL (2.7-7.7); Neutrophil % 65.8 % (47-70); Platelet Count 273 K/mm3 (150-450); RBC Distribution Width SD 40.3 fl (35.1-43.9); Red Blood Count 4.72 M/mm3 (4.2-5.4); White Blood Count 8.5 K/mm3 (4.4-11.0)
[2022-12-02 13:39] LABS: Vitamin D,25 Hydroxy 28.2 ng/mL
[2022-12-02 13:45] LABS: AST(SGOT) 23 U/L (15-37); Alanine Aminotransfer ALT/SGPT 31 U/L (13-56); Albumin, Serum 3.9 g/dL (3.2-5.0); Alkaline Phosphatase 71 U/L (45-117); Anion Gap 8 (5-15); BUN 27 mg/dL (7-18); BUN/Creat Ratio 40.7 RATIO (10-20); Calcium,Total 9.8 mg/dL (8.5-10.1); Chloride 106 mmol/L (98-107); Creatinine, Serum 0.66 mg/dL (0.55-1.02); EST Glomerular Filtration Rate 93 mL/min (>60); Est Glom Filt Rate - Afr Amer 112 mL/min (>60); Globulin 3.9 g/dL (2.2-4.2); Glucose 158 mg/dL (74-106); Potassium 4.2 mmol/L (3.5-5.1); Protein, Total 7.8 g/dL (6.4-8.2); Sodium Level 138 mmol/L (136-145); Thyroid Stim Hormone (TSH) 1.46 uIU/mL (0.358-3.74)
== END | disposition home or self-care (01) ==
PROVIDERS: PCP Family Medicine Geriatric Medicine; Visit Provider Family Medicine Geriatric Medicine
DX: E11.65 Type 2 diabetes mellitus with hyperglycemia (principal); E55.9 Vitamin D deficiency, unspecified; I10 Essential (primary) hypertension
CPT/HCPCS: 36415; 80053; 82306; 84443; 85025

== ENCOUNTER → 2023-03-02 | Outpatient (CLI) | payer BC, SELFPAY ==
[2023-03-02 12:30] LABS: Absolute Lymphocyte Count 1.69 X10^3/uL (0.83-4.51); Basophil# 0.05 X10^3/uL; Basophil% 0.7 % (0-1); Eosinophil# 0.04 X10^3/uL; Eosinophils% 0.6 % (0-5); Hematocrit 40.9 % (37-47); Hemoglobin 12.9 g/dL (12.0-15.0); Lymphocyte # 1.69 X10^3/ul (0.83-4.51); Lymphocyte % 23.6 % (19-41); Mean Corp Hgb Conc 31.5 g/dL (32-36); Mean Corpuscular Hgb 27.3 pg (27.0-32.0); Mean Corpuscular Volume 86.7 fL (81-99); Mean Platelet Vol. 10.1 fl (6.2-12.0); Monocyte# 0.38 X10^3/uL; Monocyte% 5.3 % (0-10); NRBC Flagged by Analyzer 0 % (0-5); Neutrophil # 4.97 X10^3/uL (2.7-7.7); Neutrophil % 69.5 % (47-70); Platelet Count 243 K/mm3 (150-450); RBC Distribution Width CV 13.1 % (11.6-14.6); RBC Distribution Width SD 41.1 fl (35.1-43.9); Red Blood Count 4.72 M/mm3 (4.2-5.4); White Blood Count 7.2 K/mm3 (4.4-11.0)
[2023-03-02 13:30] LABS: Vitamin D,25 Hydroxy 30.9 ng/mL
[2023-03-02 13:46] LABS: ALB/GLOB Ratio 1.2 RATIO (0.9-2.4); AST(SGOT) 17 U/L (15-37); Alanine Aminotransfer ALT/SGPT 22 U/L (13-56); Alkaline Phosphatase 65 U/L (45-117); Anion Gap 9 (5-15); BUN 21 mg/dL (7-18); Calcium,Total 9.2 mg/dL (8.5-10.1); Chloride 107 mmol/L (98-107); Creatinine, Serum 0.55 mg/dL (0.55-1.02); EST Glomerular Filtration Rate 115 mL/min (>60); Est Glom Filt Rate - Afr Amer 139 mL/min (>60); Globulin 3.3 g/dL (2.2-4.2); Glucose 114 mg/dL (74-106); Protein, Total 7.3 g/dL (6.4-8.2); Sodium Level 139 mmol/L (136-145)
== END | disposition home or self-care (01) ==
LOC: POLAB3 12:08
PROVIDERS: PCP Family Medicine Geriatric Medicine; Visit Provider Family Medicine Geriatric Medicine
DX: E11.65 Type 2 diabetes mellitus with hyperglycemia (principal); I10 Essential (primary) hypertension; E55.9 Vitamin D deficiency, unspecified
CPT/HCPCS: 36415; 80053; 82306; 84443; 85025

== ENCOUNTER → 2023-06-02 | Outpatient (CLI) | payer MEDICARE, SELFPAY ==
[2023-06-02 12:43] LABS: Absolute Lymphocyte Count 1.96 X10^3/uL (0.83-4.51); Absolute Neutrophil Count 4.2 X10^3/uL (2.0-7.7); Basophil# 0.07 X10^3/uL; Eosinophil# 0.08 X10^3/uL; Eosinophils% 1.2 % (0-5); Hematocrit 40.9 % (37-47); Hemoglobin 12.6 g/dL (12.0-15.0); Lymphocyte # 1.96 X10^3/ul (0.83-4.51); Lymphocyte % 28.7 % (19-41); Mean Corp Hgb Conc 30.8 g/dL (32-36); Mean Corpuscular Hgb 27.3 pg (27.0-32.0); Mean Corpuscular Volume 88.7 fL (81-99); Mean Platelet Vol. 10.3 fl (6.2-12.0); Monocyte# 0.49 X10^3/uL; Monocyte% 7.2 % (0-10); NRBC Flagged by Analyzer 0 % (0-5); Neutrophil # 4.23 X10^3/uL (2.7-7.7); Neutrophil % 61.8 % (47-70); Platelet Count 245 K/mm3 (150-450); RBC Distribution Width CV 13.2 % (11.6-14.6); RBC Distribution Width SD 42.6 fl (35.1-43.9); Red Blood Count 4.61 M/mm3 (4.2-5.4); White Blood Count 6.8 K/mm3 (4.4-11.0)
[2023-06-02 13:13] LABS: Vitamin D,25 Hydroxy 18.5 ng/mL
[2023-06-02 13:20] LABS: ALB/GLOB Ratio 1.2 RATIO (0.9-2.4); AST(SGOT) 18 U/L (15-37); Alanine Aminotransfer ALT/SGPT 22 U/L (13-56); Albumin, Serum 3.8 g/dL (3.2-5.0); Alkaline Phosphatase 65 U/L (45-117); Anion Gap 4 (5-15); BUN 13 mg/dL (7-18); BUN/Creat Ratio 24.1 RATIO (10-20); Calcium,Total 9.2 mg/dL (8.5-10.1); Chloride 109 mmol/L (98-107); Creatinine, Serum 0.54 mg/dL (0.55-1.02); EST Glomerular Filtration Rate 118 mL/min (>60); Est Glom Filt Rate - Afr Amer 142 mL/min (>60); Globulin 3.2 g/dL (2.2-4.2); Glucose 147 mg/dL (74-106); Potassium 4.4 mmol/L (3.5-5.1); Sodium Level 138 mmol/L (136-145); Thyroid Stim Hormone (TSH) 1.37 uIU/mL (0.358-3.74)
== END | disposition home or self-care (01) ==
PROVIDERS: PCP Family Medicine Geriatric Medicine; Referring Provider Family Medicine Geriatric Medicine; Visit Provider Family Medicine Geriatric Medicine
DX: N39.0 Urinary tract infection, site not specified (principal); E11.65 Type 2 diabetes mellitus with hyperglycemia; E55.9 Vitamin D deficiency, unspecified; I10 Essential (primary) hypertension
CPT/HCPCS: 36415; 80053; 82306; 84443; 85025; 87086; 87088; 87186

== ENCOUNTER → 2023-08-04 | Outpatient (CLI) | payer MEDICARE, SELFPAY | END | disposition home or self-care (01) | LOC: LABSPEC 16:38 | PROVIDERS: PCP Family Medicine Geriatric Medicine; Visit Provider Family Medicine Geriatric Medicine | DX: N39.0 Urinary tract infection, site not specified (principal) | CPT/HCPCS: 87077; 87086; 87088; 87186 ==

== ENCOUNTER → 2023-09-19 | Outpatient (CLI) | payer MEDICARE, SELFPAY ==
--- NOTE | 2023-09-19 14:00 | RAD_ITS ---
STUDY: X-RAY CHEST REASON FOR EXAM: Female, 73 years old. Rib pain. TECHNIQUE: Frontal and lateral views of the chest. COMPARISON: None. FINDINGS: Mild hyperinflation with diffuse interstitial prominence most marked at the bases. Patchy opacity at the left base which may represent early/developing pneumonia. Findings compatible with bronchiectasis. There is no demonstrated pleural abnormality. Cardiomegaly. Normal mediastinum and gertrude. Prominent central pulmonary arteries. Aortic tortuosity with calcification. Thoracic osteopenia with thoracolumbar scoliosis and with diffuse mild thoracic spondylosis. Normal visualized ribs, clavicles, and shoulders. No abnormality of the visualized soft tissue structures of the upper abdomen. RAD/Chest PA and Lateral IMPRESSION: Cardiomegaly with mild hyperinflation, diffuse interstitial pattern and patchy opacity at the left base which may represent an early/developing pneumonia. Follow-up chest imaging to resolution recommended., Electronically Signed: Kofi Hi MD at 14:29 EDT ,
== END | disposition home or self-care (01) ==
LOC: RAD 13:59
PROVIDERS: PCP Family Medicine Geriatric Medicine; Referring Provider Family Medicine Geriatric Medicine; Visit Provider Family Medicine Geriatric Medicine
DX: R68.83 Chills (without fever) (principal); R07.81 Pleurodynia
CPT/HCPCS: 71046; 87631

== ENCOUNTER → 2023-12-02 | Outpatient (CLI) | payer MEDICARE, SELFPAY ==
[2023-12-02 09:33] LABS: Absolute Lymphocyte Count 1.71 X10^3/uL (0.83-4.51); Absolute Neutrophil Count 4.4 X10^3/uL (2.0-7.7); Basophil# 0.06 X10^3/uL; Basophil% 0.9 % (0-1); Eosinophil# 0.08 X10^3/uL; Eosinophils% 1.2 % (0-5); Hematocrit 39.3 % (37-47); Hemoglobin 12.4 g/dL (12.0-15.0); Lymphocyte # 1.71 X10^3/ul (0.83-4.51); Lymphocyte % 25.6 % (19-41); Mean Corp Hgb Conc 31.6 g/dL (32-36); Mean Corpuscular Hgb 26.7 pg (27.0-32.0); Mean Corpuscular Volume 84.7 fL (81-99); Mean Platelet Vol. 10.2 fl (6.2-12.0); Monocyte# 0.41 X10^3/uL; Monocyte% 6.1 % (0-10); NRBC Flagged by Analyzer 0 % (0-5); Neutrophil % 65.9 % (47-70); Platelet Count 251 K/mm3 (150-450); RBC Distribution Width CV 13.8 % (11.6-14.6); RBC Distribution Width SD 42.5 fl (35.1-43.9); Red Blood Count 4.64 M/mm3 (4.2-5.4); White Blood Count 6.7 K/mm3 (4.4-11.0)
[2023-12-02 10:08] LABS: Vitamin D,25 Hydroxy 29.6 ng/mL
[2023-12-02 10:20] LABS: ALB/GLOB Ratio 1.1 RATIO (0.9-2.4); AST(SGOT) 22 U/L (15-37); Alanine Aminotransfer ALT/SGPT 29 U/L (13-56); Albumin, Serum 3.6 g/dL (3.2-5.0); Alkaline Phosphatase 58 U/L (45-117); Anion Gap 7 (5-15); BUN 13 mg/dL (7-18); BUN/Creat Ratio 23.6 RATIO (10-20); Calcium,Total 8.8 mg/dL (8.5-10.1); Chloride 107 mmol/L (98-107); Creatinine, Serum 0.55 mg/dL (0.55-1.02); EST Glomerular Filtration Rate 115 mL/min (>60); Est Glom Filt Rate - Afr Amer 139 mL/min (>60); Globulin 3.4 g/dL (2.2-4.2); Glucose 155 mg/dL (74-106); Potassium 4.1 mmol/L (3.5-5.1); Sodium Level 138 mmol/L (136-145); Thyroid Stim Hormone (TSH) 2.18 uIU/mL (0.358-3.74)
== END | disposition home or self-care (01) ==
LOC: POLAB3 09:15
PROVIDERS: PCP Family Medicine Geriatric Medicine; Visit Provider Family Medicine Geriatric Medicine
DX: N39.0 Urinary tract infection, site not specified (principal); E11.65 Type 2 diabetes mellitus with hyperglycemia; E55.9 Vitamin D deficiency, unspecified; I10 Essential (primary) hypertension
CPT/HCPCS: 36415; 80053; 82306; 84443; 85025; 87086; 87088; 87186

== ENCOUNTER → 2024-06-04 | Outpatient (CLI) | payer MEDICARE, SELFPAY ==
[2024-06-04 11:20] LABS: Absolute Lymphocyte Count 1.24 X10^3/uL (0.83-4.51); Absolute Neutrophil Count 4.3 X10^3/uL (2.0-7.7); Basophil# 0.06 X10^3/uL; Eosinophil# 0.08 X10^3/uL; Eosinophils% 1.3 % (0-5); Hematocrit 36.8 % (37-47); Hemoglobin 11.3 g/dL (12.0-15.0); Lymphocyte # 1.24 X10^3/ul (0.83-4.51); Mean Corp Hgb Conc 30.7 g/dL (32-36); Mean Corpuscular Hgb 25.8 pg (27.0-32.0); Mean Platelet Vol. 9.6 fl (6.2-12.0); Monocyte# 0.49 X10^3/uL; Monocyte% 7.9 % (0-10); NRBC Flagged by Analyzer 0 % (0-5); Neutrophil # 4.32 X10^3/uL (2.7-7.7); Neutrophil % 69.6 % (47-70); Platelet Count 358 K/mm3 (150-450); RBC Distribution Width CV 14.2 % (11.6-14.6); RBC Distribution Width SD 43.1 fl (35.1-43.9); Red Blood Count 4.38 M/mm3 (4.2-5.4); White Blood Count 6.2 K/mm3 (4.4-11.0)
[2024-06-04 11:56] LABS: Vitamin D,25 Hydroxy 12.6 ng/mL
[2024-06-04 12:08] LABS: ALB/GLOB Ratio 0.9 RATIO (0.9-2.4); AST(SGOT) 16 U/L (15-37); Alanine Aminotransfer ALT/SGPT 19 U/L (13-56); Albumin, Serum 3.5 g/dL (3.2-5.0); Alkaline Phosphatase 69 U/L (45-117); Anion Gap 6 (5-15); BUN 17 mg/dL (7-18); BUN/Creat Ratio 21.8 RATIO (10-20); Calcium,Total 8.8 mg/dL (8.5-10.1); Chloride 106 mmol/L (98-107); Creatinine, Serum 0.78 mg/dL (0.55-1.02); EST Glomerular Filtration Rate 77 mL/min (>60); Est Glom Filt Rate - Afr Amer 93 mL/min (>60); Globulin 3.9 g/dL (2.2-4.2); Glucose 172 mg/dL (74-106); Potassium 4.2 mmol/L (3.5-5.1); Protein, Total 7.4 g/dL (6.4-8.2); Sodium Level 137 mmol/L (136-145)
== END | disposition home or self-care (01) ==
LOC: LAB 09:52
PROVIDERS: PCP Family Medicine Geriatric Medicine; Referring Provider Family Medicine Geriatric Medicine; Visit Provider Family Medicine Geriatric Medicine
DX: E11.65 Type 2 diabetes mellitus with hyperglycemia (principal); I10 Essential (primary) hypertension; E55.9 Vitamin D deficiency, unspecified
CPT/HCPCS: 36415; 80053; 82306; 84443; 85025

== ENCOUNTER → 2024-10-15 | Outpatient (CLI) | payer MEDICARE, SELFPAY | END | disposition home or self-care (01) | LOC: LAB 16:36 → LABSPEC 16:37 | PROVIDERS: PCP Family Medicine Geriatric Medicine; Referring Provider Family Medicine Geriatric Medicine; Visit Provider Family Medicine Geriatric Medicine | DX: N39.0 Urinary tract infection, site not specified (principal) | CPT/HCPCS: 87077; 87086; 87088; 87186 ==

== ENCOUNTER → 2024-11-01 | Outpatient (CLI) | payer MEDICARE, SELFPAY ==
--- NOTE | 2024-11-01 15:20 | CT_ITS ---
PROCEDURE: ABDOMEN/PELVIS WITHOUT CONT 11/01/2024 REASON FOR EXAM: L FLANK PAIN TECHNIQUE: ABDOMEN/PELVIS WITHOUT CONT Noncontrast technique limits evaluation of the abdominal and pelvic viscera. Coronal and Sagittal reconstruction series were provided. One or more dose reduction techniques were used (e.g., Automated exposure control, adjustment of the mA and/or kV according to patient size, use of iterative reconstruction technique). RADIATION DOSE SUMMARY: CTDlvol: 13.01 mGy DLP: 443.07 mGycm COMPARISON: None FINDINGS: Lung bases: Dependent atelectasis with peripheral honeycombing and fibrotic scarring Liver: Normal size. No obvious mass. Gallbladder: Unremarkable Spleen: Normal size. 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 Pancreas: Normal size. No surrounding inflammation. Adrenals: Unremarkable Kidneys: No obstructive uropathy or suspicious solid renal lesion, simple cortical cysts, no specific follow-up needed. Bladder: Unremarkable Reproductive Organs: Likely surgically absent Bowel: Bowel loops are unremarkable aside from retained stool. No CT evidence of acute inflammation there are scattered colonic diverticula without CT evidence of acute diverticulitis. Appendix: Not visualized No free intraperitoneal fluid, air, or suspicious adenopathy. Postsurgical changes noted in the stomach, no anastomotic leak Bones: Bony structures show degenerative change CT/Abdomen/Pelvis without Cont IMPRESSION: No suspicious solid organ abnormality, simple cortical cysts in both kidneys, n o specific follow-up needed. Retained stool with scattered colonic diverticula, no CT evidence of acute dive rticulitis. No free intraperitoneal fluid, air, or suspicious adenopathy Fibrotic scarring in the lung bases with peripheral honeycombing Reading Location: [id number]
== END | disposition home or self-care (01) ==
LOC: CT 15:17
PROVIDERS: PCP Family Medicine Geriatric Medicine; Referring Provider Family Medicine Geriatric Medicine; Visit Provider Family Medicine Geriatric Medicine
DX: R10.9 Unspecified abdominal pain (principal)
CPT/HCPCS: 74176

== ENCOUNTER → 2024-12-06 | Outpatient (CLI) | payer MEDICARE, SELFPAY ==
[2024-12-06 09:02] LABS: Hematocrit 37.8 % (37-47); Hemoglobin 12.1 g/dL (12.0-15.0); Immature Granulocytes Count 0.030 X10^3/uL (0.0-0.0); Mean Corp Hgb Conc 32.0 g/dL (32-36); Mean Corpuscular Volume 81.8 fL (81-99); Mean Platelet Vol. 9.5 fl (6.2-12.0); NRBC Flagged by Analyzer 0 % (0-5); Platelet Count 304 K/mm3 (150-450); RBC Distribution Width CV 14.6 % (11.6-14.6); RBC Distribution Width SD 42.8 fl (35.1-43.9); Red Blood Count 4.62 M/mm3 (4.2-5.4); White Blood Count 9.2 K/mm3 (4.4-11.0)
--- OUTSIDE RECORDS SUMMARY | 2024-12-06 09:41 | XMS RPT_ITS | CCD ---
Author Organization [facility] Care Team Providers Care Compensation Specialist Name Role Phone David SMITH, Dr. Matt Ruggiero Primary Care Provider [phone] David SMITH, Dr. Matt Ruggiero Attending Provider Dr. Matt Hernandez MD, Chi Referring Provider David, Matt Chi Attending Unavailable David, Matt Chi Primary Care Unavailable David, Matt Chi Attending Unavailable David, Matt Chi Referring Unavailable David, Matt Chi Primary Care Unavailable David, Matt Chi Attending Unavailable David, Matt Chi Referring Unavailable David, Matt Chi Primary Care Unavailable David, Matt Chi Attending Unavailable David, Matt Chi Referring Unavailable David, Matt Chi Primary Care Unavailable Medications Current Medications Medication Drug Class(es) Dates Sig (Normalized) Sig (Original) amLODIPine 5 mg oral tablet (6 sources) Dihydropyridine Calcium Channel Ela Start: 9 take 1 tablet by mouth once daily Amlodipine 5 mg tablet Active 5 mg PO DAILY September 19, 2018 12:00am aspirin 81 mg delayed release oral tablet (6 sources) Platelet Aggregation Inhibitor, Nonsteroidal Anti-inflammatory Drug Start: 9 Aspirin (Adult Low Dose Aspirin) 81 mg tablet,delayed release (DR/EC) Active 81 mg PO DAILY September 19, 2018 12:00am atorvastatin 40 mg oral tablet (6 sources) HMG-CoA Reductase Inhibitor Start: 9 take 1 tablet by mouth once daily Atorvastatin 40 mg tablet Active 40 mg PO DAILY September 19, 2018 12:00am clindamycin 300 mg oral capsule (6 sources) Lincosamide Antibacterial Start: 9 take 1 capsule by mouth every six hours Clindamycin Hcl (Cleocin Hcl) 300 MG capsule Active 300 mg PO EVERY 6 HOURS 20 0 September 27, 2018 12:00am glimepiride 4 mg oral tablet (6 sources) Sulfonylurea Start: 9 take 1 tablet by mouth once daily in the morning Glimepiride 4 mg tablet Active 4 mg PO EVERY MORNING September 19, 2018 12:00am hydroCHLOROthiazide 12.5 mg / losartan potassium 100 mg oral tablet (6 sources) Thiazide Diuretic, Angiotensin 2 Receptor Ela Start: 9 Losartan-Hydroch lorothiazide 100-12.5 mg tablet Active 1 {tbl} PO DAILY September 19, 2018 12:00am Start: 09-19-2018 take 1 tablet by nimo th once daily Losartan-Hydrochlorothiazide Active 1 TA BLET PO DAILY September 19, 2018 12:00am ibuprofen 200 mg oral tablet (6 sources) Nonsteroidal Anti-inflammatory Drug Start: 09-19-2018 take 1 tablet by mouth every six hours Ibuprofen 200 mg tablet Active 200 mg PO EVERY 6 HOURS September 19, 2018 12:00am metFORMIN hydrochloride 1000 mg oral tablet (6 sources) Biguanide Start: 09-19-2018 take 1 tablet by mouth twice daily Metformin 1,000 mg tablet Active 1000 mg PO TWICE A DAY September 19, 2018 12:00am pioglitazone 30 mg oral tablet (6 sources) Peroxisome Proliferator Receptor alpha Agonist, Peroxisome Proliferator Receptor gamma Agonist, Thiazolidinedione Start: 09-19-2018 take 1 tablet by mouth once daily Pioglitazone 30 mg tablet Active 30 mg PO DAILY September 19, 2018 12:00am triamcinolone acetonide 0.055 mg/actuat metered dose nasal spray (6 sources) Corticosteroid Start: 01-22-2017 Triamcinolone Acetonide 1 SPRAY aerosol,spray Active 10.8 mL NS TWICE A DAY 10 January 22, 2017 12:00am Problems Problem Classification Problem Date Documented Da te Episodic/Chronic Abdominal pain (1 source) Unspecified abdominal pain; Translations: [Unspecified abdominal pain] Onset: 11-07-2024 Episodic Diabetes mellitus with complications (1 source) Type 2 diabetes mellitus with hyperglycemia; Translations: [Type 2 diabetes mellitus with hyperglycemia] Onset: 06-22-2024 Chronic Disorders of lipid metabolism (6 sources) Hyperlipidemia; Translations: [Hyperlipidemia, unspecified] 09-27-2018 Chronic Essential hypertension (6 sources) Essential hypertension; Translations: [Essential (primary) hypertension] 09-27-2018 Chronic Open wounds of extremities (6 sources) Laceration of hand; Translations: [Laceration without foreign body of left hand, initial encounter] 09-28-2018 Episodic Osteoarthritis (6 sources) Osteoarthritis; Translations: [Unspecified osteoarthritis, unspecified site] 09-27-2018 Chronic Other nutritional; endocrine; and metabolic disorders (6 sources) Morbid obesity; Translations: [Morbid (severe) obesity due to excess calories] 09-27-2018 Chronic Urinary tract infections (1 source) Urinary tract infection, site not specified; Translations: [Urinary tract infection, site not specified] Onset: 10-19-2024 Episodic Results Test Name Value Interpretation Reference Range Facility Abdomen/Pelvis without Conto n 11-01-2024 Abdomen/Pelvis without Cont [facility] [address], [place] [id number] Abdomen/Pelvis without Cont MR#: [id number] Acct: [id number] Name: OSIEL MERINO Rep #: [id number] : 1950 F 74 From: Mahendra Parr MD PCP: Dr. Matt Hernandez MD Status: REG CLI Study: Abdomen/Pelvis without Cont Date of Exam: 07/24 Exam# [id number] Ordering Dr: Matt Hernandez MD PROCEDURE: ABDOMEN/PELVIS WITHOUT CONT 11/01/2024 REASON FOR EXAM: L FLANK PAIN TECHNIQUE: ABDOMEN/PELVIS WITHOUT CONT Noncontrast technique limits evaluation of the abdominal and pelvic viscera. Coronal and Sagittal reconstruction series were provided. One or more dose reduction techniques were used (e.g., Automated exposure control, adjustment of the mA and/or kV according to patient size, use of iterative reconstruction technique). RADIATION DOSE SUMMARY: CTDlvol: 13.01 mGy DLP: 443.07 mGycm COMPARISON: None FINDINGS: Lung bases: Dependent atelectasis with peripheral honeycombing and fibrotic scarring Liver: Normal size. No obvious mass. Gallbladder: Unremarkable Spleen: Normal size. 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 Pancreas: Normal size. No surrounding inflammation. Adrenals: Unremarkable Kidneys: No obstructive uropathy or suspicious solid renal lesion, simple cortical cysts, no specific follow-up needed. Bladder: Unremarkable Reproductive Organs: Likely surgically absent Bowel: Bowel loops are unremarkable aside from retained stool. No CT evidence of acute inflammation there are scattered colonic diverticula without CT evidence of acute diverticulitis. Appendix: Not visualized No free intraperitoneal fluid, air, or suspicious adenopathy. Postsurgical changes noted in the stomach, no anastomotic leak Bones: Bony structures show degenerative change CT/Abdomen/Pelvis without Cont IMPRESSION: No suspicious solid organ abnormality, simple cortical cysts in both kidneys, no specific follow-up needed. Retained stool with scattered colonic diverticula, no CT evidence of acute diverticulitis. No free intraperitoneal fluid, air, or suspicious adenopathy Fibrotic scarring in the lung bases with peripheral honeycombing Reading Location: [id number] CC: Dr. Matt Hernandez MD Lineman A Class: Signed Normal [facility] Urine Cultureon 10-18-2024 [facility] Copy of report sent to Infection Control Printer [id number] 10/18/24 0629 [employer] ESBL Escherichia coli [place] Count >100,000 MARKER ESBL producing OrganismA MARKER ESBL producing OrganismA Ampicillin Islt DYLAN >=32 R Ampicillin+Sulbac Islt DYLAN 16 Cefepime Islt DYLAN 4 I cefTRIAXone Islt DYLAN >=64 R Ciprofloxacin Islt DYLAN >=4 R B-Lactamase Extended Susc Islt POS Gentamicin Islt DYLAN <=1 S levoFLOXacin Islt DYLAN >=8 R Meropenem Islt DYLAN <=0.25 S Nitrofurantoin Islt DYLAN 128 R Pip+Tazo Islt DYLAN <=4 S TMP SMX Islt DYLAN <=20 S ESBL Escherichia coli: REACTION Amikacin Islt DYLAN 2 S Eravacycline Islt DYLAN <=0.12 Imipenem Islt DYLAN <=0.25 S Tobramycin Islt DYLAN <=1 S Normal [facility] Comment on above: Performed By: #### L 500.4050, L100.0100, L506.1000, L501.9520 #### [facility] [address] [place], [address] Urine cultureOrdered By: Matt Hernandez on 10-15-2024 Bacteria identified Cx Nom (U) ESBL Escherichia coli Abnormal [facility] CBC W/Diff, Automatedon 02-0 Absolute Lymph 1.24 X10 3/uL Normal 0.83-4.51 [facility] Comment on above: Performed By: #### L 500.4050, L100.0100, L506.1000, L501.9520 #### [facility] [address] [place], [address] Absolute Neut 4.3 X10 3/uL Normal 2.0-7.7 [facility] Comment on above: Performed By: #### L 500.4050, L100.0100, L506.1000, L501.9520 #### [facility] [address] [place], [address] Basophils/100 WBC (Bld) 1.0 % Normal 0-1 [facility] Comment on above: Performed By: #### L 500.4050, L100.0100, L506.1000, L501.9520 #### [facility] [address] [place], [address] Eosinophils/100 WBC (Bld) 1.3 % Normal 0-5 [facility] Comment on above: Performed By: #### L 500.4050, L100.0100, L506.1000, L501.9520 #### [facility] [address] [place], [address] Erythrocyte distribution width (RBC) [Ratio] 14.2 % Normal 11.6-14.6 [facility] Comment on above: Performed By: #### L 500.4050, L100.0100, L506.1000, L501.9520 #### [facility] [address] [place], [address] Hematocrit (Bld) [Volume fraction] 36.8 % Low 37-47 [facility] Comment on above: Performed By: #### L 500.4050, L100.0100, L506.1000, L501.9520 #### [facility] [address] [place], [address] Hemoglobin (Bld) [Mass/Vol] 11.3 g/dL Low 12.0-15.0 [facility] Comment on above: Performed By: #### L 500.4050, L100.0100, L506.1000, L501.9520 #### [facility] [address] [place], [address] IG% 0.200 Normal 0.0-0.9 [facility] Comment on above: Result Comment: IG% - Immature Granulocytes (promyelocytes, myelocytes and metamyelocytes) > 1% indicates that a LEFT SHIFT is Present. Performed By: #### L 500.4050, L100.0100, L506.1000, L501.9520 #### [facility] [address] [place], [address] Lymphocytes/100 WBC (Bld) 20.0 % Normal 19-41 [facility] Comment on above: Performed By: #### L 500.4050, L100.0100, L506.1000, L501.9520 #### [facility] [address] [place], [address] MCH (RBC) [Entitic mass] 25.8 pg Low 27.0-32.0 [facility] Comment on above: Performed By: #### L 500.4050, L100.0100, L506.1000, L501.9520 #### [facility] [address] [place], [address] MCHC (RBC) [Mass/Vol] 30.7 g/dL Low 32-36 [facility] Comment on above: Performed By: #### L 500.4050, L100.0100, L506.1000, L501.9520 #### [facility] [address] [place], [address] MCV (RBC) [Entitic vol] 84.0 fL Normal 81-99 [facility] Comment on above: Performed By: #### L 500.4050, L100.0100, L506.1000, [id number] #### [facility] [address] [place], [address] Monocytes/100 WBC (Bld) 7.9 % Normal 0-10 [facility] Comment on above: Performed By: #### L 500.4050, L100.0100, L506.1000, L501.9520 #### [facility] [address] [place], [address] Neutrophils/100 WBC (Bld) 69.6 % Normal 47-70 [facility] Comment on above: Performed By: #### L 500.4050, L100.0100, L506.1000, L501.9520 #### [facility] [address] [place], [address] Nucleated RBC (Bld) [#/Vol] 0 10*3/uL Normal 0-5 [facility] Comment on above: Performed By: #### L 500.4050, L100.0100, L506.1000, L501.9520 #### [facility] [address] [place], [address] Platelet mean volume (Bld) [Entitic vol] 9.6 fL Normal 6.2-12.0 [facility] Comment on above: Performed By: #### L 500.4050, L100.0100, L506.1000, L501.9520 #### [facility] [address] [place], [address] Platelets (Bld) [#/Vol] 358 10*3/uL Normal 150-450 [facility] Comment on above: Performed By: #### L 500.4050, L100.0100, L506.1000, L501.9520 #### [facility] [address] [place], [address] RBC (Bld) [#/Vol] 4.38 10*6/uL Normal 4.2-5.4 [facility] Comment on above: Performed By: #### L 500.4050, L100.0100, L506.1000, L501.9520 #### [facility] [address] [place], [address] RDW SD 43.1 fl Normal 35.1-43.9 [facility] Comment on above: Performed By: #### L 500.4050, L100.0100, L506.1000, L501.9520 #### [facility] [address] [place], [address] WBC (Bld) [#/Vol] 6.2 10*3/uL Normal 4.4-11.0 [facility] Comment on above: Performed By: #### L 500.4050, L100.0100, L506.1000, L501.9520 #### [facility] [address] [place], [address] Comprehensive Metabolic Prof ilon 06-04-2024 Albumin [Mass/Vol] 3.5 g/dL Normal 3.2-5.0 [facility] Comment on above: Performed By: #### L 500.4050, L100.0100, L506.1000, L501.9520 #### [facility] [address] [place], [address] Albumin/Globulin [Mass ratio] 0.9 {ratio} Normal 0.9-2.4 [facility] Comment on above: Performed By: #### L 500.4050, L100.0100, L506.1000, L501.9520 #### [facility] [address] [place], [address] ALK P 69 U/L Normal 45-117 [facility] Comment on above: Performed By: #### L 500.4050, L100.0100, L506.1000, L501.9520 #### [facility] [address] [place], [address] ALT [Catalytic activity/Vol] 19 U/L Normal 13-56 [facility] Comment on above: Performed By: #### L 500.4050, L100.0100, L506.1000, L501.9520 #### [facility] [address] [place], [address] AST [Catalytic activity/Vol] 16 U/L Normal 15-37 [facility] Comment on above: Performed By: #### L 500.4050, L100.0100, L506.1000, L501.9520 #### [facility] [address] [place], [address] Bilirubin [Mass/Vol] 0.30 mg/dL Normal 0.20-1.00 [facility] Comment on above: Result Comment: For patients on eltrombopag therapy, use of Dimension [place] TBIL is not recommended. Performed By: #### L 500.4050, L100.0100, L506.1000, L501.9520 #### [facility] [address] [place], [address] BUN/CRE 21.8 RATIO High 10-20 [facility] Comment on above: Performed By: #### L 500.4050, L100.0100, L506.1000, L501.9520 #### [facility] [address] [place], [address] CA,Total 8.8 mg/dL Normal 8.5-10.1 [facility] Comment on above: Performed By: #### L 500.4050, L100.0100, L506.1000, L501.9520 #### [facility] [address] [place], [address] Chloride [Moles/Vol] 106 mmol/L Normal 98-107 [facility] Comment on above: Performed By: #### L 500.4050, L100.0100, L506.1000, L501.9520 #### [facility] [address] [place], [address] CO2 [Moles/Vol] 24.0 mmol/L Normal 21.0-32.0 [facility] Comment on above: Performed By: #### L 500.4050, L100.0100, L506.1000, L501.9520 #### [facility] [address] [place], [address] Creatinine [Mass/Vol] 0.78 mg/dL Normal 0.55-1.02 [facility] Comment on above: Result Comment: The validity of the calculated GFR GFRAA in patients over 70 years has not been determined. Clinical correlation is essential. Performed By: #### L 500.4050, L100.0100, L506.1000, L501.9520 #### [facility] [address] [place], [address] EST GFR - AA 93 mL/min Normal >60 [facility] Comment on above: Result Comment: Afri can [place] GFR Calc Performed By: #### L 500.4050, L100.0100, L506.1000, L501.9520 #### [facility] [address] [place], [address] GAP 6 Normal 5-15 [facility] Comment on above: Performed By: #### L 500.4050, L100.0100, L506.1000, L501.9520 #### [facility] [address] [place], [address] GFR/1.73 sq M.predicted among non-blacks MDRD (S/P/Bld) [Vol rate/Area] 77 mL/min/{1.73_m2} Normal >60 [facility] Comment on above: Result Comment: Non- GFR Calc Performed By: #### L 500.4050, L100.0100, L506.1000, L501.9520 #### [facility] [address] [place], [address] Globulin (S) [Mass/Vol] 3.9 g/dL Normal 2.2-4.2 [facility] Comment on above: Performed By: #### L 500.4050, L100.0100, L506.1000, L501.9520 #### [facility] [address] [place], [address] Glucose [Mass/Vol] 172 mg/dL High 74-106 [facility] Comment on above: Result Comment: Fast ing Glucose result greater than or equal to 126 mg/dL suggests DIABETES MELLITUS per A.D.A. criteria. Performed By: #### L 500.4050, L100.0100, L506.1000, L501.9520 #### [facility] [address] [place], [address] Potassium [Moles/Vol] 4.2 mmol/L Normal 3.5-5.1 [facility] Comment on above: Performed By: #### L 500.4050, L100.0100, L506.1000, L501.9520 #### [facility] [address] [place], [address] Sodium [Moles/Vol] 137 mmol/L Normal 136-145 [facility] Comment on above: Performed By: #### L 500.4050, L100.0100, L506.1000, L501.9520 #### [facility] [address] [place], [address] T PROT 7.4 g/dL Normal 6.4-8.2 [facility] Comment on above: Performed By: #### L 500.4050, L100.0100, L506.1000, L501.9520 #### [facility] [address] [place], [address] Urea nitrogen [Mass/Vol] 17 mg/dL Normal 7-18 [facility] Comment on above: Performed By: #### L 500.4050, L100.0100, L506.1000, L501.9520 #### [facility] [address] [place], [address] Thyroid Stim Hormone (TSH)on 06-04-2024 TSH 1.390 uIU/mL Normal 0.358-3.740 [facility] Comment on above: Performed By: #### L 500.4050, L100.0100, L506.1000, L501.9520 #### [facility] [address] [place], [address] Vitamin D,25 Hydroxyon 06-04 Vitamin D 25-OH 12.6 ng/mL Normal [facility] Comment on above: Result Comment: [place] min D 25(OH) Status Range Deficiency <20 ng/mL (50nmol/L) Insufficiency 20 - 30 ng/mL (50 - 75 nmol/L) Sufficiency 30 - 100 ng/mL (75 - 250 nmol/L) Toxicity >100 ng/mL (>250 nmol/L) Performed By: #### L 500.4050, L100.0100, L506.1000, L501.9520 #### [facility] [address] [place], [address] Urine Cultureon 12-05-2023 [facility] Bacteria Ur Cult RESULTS CALLED TO DR. ZACK Siegel VOICEMAIL 12/05/23 1140 Sita Mireles. REPORT READ BACK BY . Bacteria Ur Cult Copy of report sent to Infection Control Printer [id number] 12/05/23 1144 SCOT. ESBL Escherichia coli [place] Count >100,000 MARKER A ESBL producing Organism A ESBL Escherichia coli: REACTION Amikacin Islt DYLAN <=2 S cefoTEtan Islt DYLAN <=4 S Meropenem Islt DYLAN <=0.25 S Tetracycline Islt DYLAN 2 S Cefuroxime Islt DYLAN >=64 R ESBL Escherichia coli: REACTION Ampicillin Islt DYLAN >=32 R Ampicillin+Sulbac Islt DYLAN >=32 R ceFAZolin Islt DYLAN >=64 R Cefepime Islt DYLAN 16 R cefTRIAXone Islt DYLAN >=64 R Ciprofloxacin Islt DYLAN >=4 R Ertapenem Islt DYLAN <=0.12 S B-Lactamase Extended Susc Islt POS Gentamicin Islt DYLAN <=1 S Imipenem Islt DYLAN <=0.25 S levoFLOXacin Islt DYLAN >=8 R Nitrofurantoin Islt DYLAN 64 I Pip+Tazo Islt DYLAN <=4 S Tobramycin Islt DYLAN <=1 S TMP SMX Islt DYLAN <=20 S Normal [facility] Comment on above: Performed By: #### L 501.9520, L500.4050, M100.2200, L506.1000, L100.0100 #### [facility] [address] [place], [address] CBC W/Diff, Automatedon 08-0 2-2023 Absolute Lymph 1.71 X10 3/uL Normal 0.83-4.51 [facility] Comment on above: Performed By: #### L 501.9520, L500.4050, M100.2200, L506.1000, L100.0100 #### [facility] [address] [place], [address] Absolute Neut 4.4 X10 3/uL Normal 2.0-7.7 [facility] Comment on above: Performed By: #### L 501.9520, L500.4050, M100.2200, L506.1000, L100.0100 #### [facility] [address] [place], [address] Basophils/100 WBC (Bld) 0.9 % Normal 0-1 [facility] Comment on above: Performed By: #### L 501.9520, L500.4050, M100.2200, L506.1000, L100.0100 #### [facility] [address] [place], [address] Eosinophils/100 WBC (Bld) 1.2 % Normal 0-5 [facility] Comment on above: Performed By: #### L 501.9520, L500.4050, M100.2200, L506.1000, L100.0100 #### [facility] [address] [place], [address] Erythrocyte distribution width (RBC) [Ratio] 13.8 % Normal 11.6-14.6 [facility] Comment on above: Performed By: #### L 501.9520, L500.4050, M100.2200, L506.1000, L100.0100 #### [facility] [address] [place], [address] Hematocrit (Bld) [Volume fraction] 39.3 % Normal 37-47 [facility] Comment on above: Performed By: #### L 501.9520, L500.4050, M100.2200, L506.1000, L100.0100 #### [facility] [address] [place], [address] Hemoglobin (Bld) [Mass/Vol] 12.4 g/dL Normal 12.0-15.0 [facility] Comment on above: Performed By: #### L 501.9520, L500.4050, M100.2200, L506.1000, L100.0100 #### [facility] [address] [place], [address] IG% 0.300 Normal 0.0-0.9 [facility] Comment on above: Result Comment: IG% - Immature Granulocytes (promyelocytes, myelocytes and metamyelocytes) > 1% indicates that a LEFT SHIFT is Present. Performed By: #### L 501.9520, L500.4050, M100.2200, L506.1000, L100.0100 #### [facility] [address] [place], [address] Lymphocytes/100 WBC (Bld) 25.6 % Normal 19-41 [facility] Comment on above: Performed By: #### L 501.9520, L500.4050, M100.2200, L506.1000, L100.0100 #### [facility] [address] [place], [address] MCH (RBC) [Entitic mass] 26.7 pg Low 27.0-32.0 [facility] Comment on above: Performed By: #### L 501.9520, L500.4050, M100.2200, L506.1000, L100.0100 #### [facility] [address] [place], [address] MCHC (RBC) [Mass/Vol] 31.6 g/dL Low 32-36 [facility] Comment on above: Performed By: #### L 501.9520, L500.4050, M100.2200, L506.1000, L100.0100 #### [facility] [address] [place], [address] MCV (RBC) [Entitic vol] 84.7 fL Normal 81-99 [facility] Comment on above: Performed By: #### L 501.9520, L500.4050, M100.2200, L506.1000, L100.0100 #### [facility] [address] [place], [address] Monocytes/100 WBC (Bld) 6.1 % Normal 0-10 [facility] Comment on above: Performed By: #### L 501.9520, L500.4050, M100.2200, L506.1000, L100.0100 #### [facility] [facility] [address] [place], [address] Neutrophils/100 WBC (Bld) 65.9 % Normal 47-70 [facility] Comment on above: Performed By: #### L [id number], [id number], M100.2200, L506.1000, L100.0100 #### [facility] [address] [place], [address] Nucleated RBC (Bld) [#/Vol] 0 10*3/uL Normal 0-5 [facility] Comment on above: Performed By: #### L [id number], [id number], M100.2200, L506.1000, L100.0100 #### [facility] [address] [place], [address] Platelet mean volume (Bld) [Entitic vol] 10.2 fL Normal 6.2-12.0 [facility] Comment on above: Performed By: #### L [id number], [id number], M100.2200, L506.1000, L100.0100 #### [facility] [address] [place], [address] Platelets (Bld) [#/Vol] 251 10*3/uL Normal 150-450 [facility] Comment on above: Performed By: #### L [id number], [id number], M100.2200, L506.1000, L100.0100 #### [facility] [address] [place], [address] RBC (Bld) [#/Vol] 4.64 10*6/uL Normal 4.2-5.4 [facility] Comment on above: Performed By: #### L [id number], [id number], M100.2200, L506.1000, L100.0100 #### [facility] [address] [place], [address] RDW SD 42.5 fl Normal 35.1-43.9 [facility] Comment on above: Performed By: #### L [id number], [id number], M100.2200, L506.1000, L100.0100 #### [facility] [address] [place], [address] WBC (Bld) [#/Vol] 6.7 10*3/uL Normal 4.4-11.0 [facility] Comment on above: Performed By: #### L [id number], [id number], M100.2200, L506.1000, L100.0100 #### [facility] [address] [place], [address] Comprehensive Metabolic Prof ilon 12-02-2023 Albumin [Mass/Vol] 3.6 g/dL Normal 3.2-5.0 [facility] Comment on above: Performed By: #### L [id number], [id number], M100.2200, L506.1000, L100.0100 #### [facility] [address] [place], [address] Albumin/Globulin [Mass ratio] 1.1 {ratio} Normal 0.9-2.4 [facility] Comment on above: Performed By: #### L [id number], [id number], M100.2200, L506.1000, L100.0100 #### [facility] [address] [place], [address] ALK P 58 U/L Normal 45-117 [facility] Comment on above: Performed By: #### L [id number], [id number], M100.2200, L506.1000, L100.0100 #### [facility] [address] [place], [address] ALT [Catalytic activity/Vol] 29 U/L Normal 13-56 [facility] Comment on above: Performed By: #### L [id number], [id number], M100.2200, L506.1000, L100.0100 #### [facility] [address] [place], [address] AST [Catalytic activity/Vol] 22 U/L Normal 15-37 [facility] Comment on above: Performed By: #### L [id number], [id number], M100.2200, L506.1000, L100.0100 #### [facility] [address] [place], [address] Bilirubin [Mass/Vol] 0.50 mg/dL Normal 0.20-1.00 [facility] Comment on above: Result Comment: For patients on eltrombopag therapy, use of Dimension [place] TBIL is not recommended. Performed By: #### L [id number], [id number], M100.2200, L506.1000, L100.0100 #### [facility] [address] [place], [address] BUN/CRE 23.6 RATIO High 10-20 [facility] Comment on above: Performed By: #### L [id number], [id number], M100.2200, L506.1000, L100.0100 #### [facility] [address] [place], [address] CA,Total 8.8 mg/dL Normal 8.5-10.1 [facility] Comment on above: Performed By: #### L [id number], [id number], M100.2200, L506.1000, L100.0100 #### [facility] [address] [place], [address] Chloride [Moles/Vol] 107 mmol/L Normal 98-107 [facility] Comment on above: Performed By: #### L [id number], [id number], M100.2200, L506.1000, L100.0100 #### [facility] [address] [place], [address] CO2 [Moles/Vol] 24.0 mmol/L Normal 21.0-32.0 [facility] Comment on above: Performed By: #### L [id number], [id number], M100.2200, L506.1000, L100.0100 #### [facility] [address] [place], [address] Creatinine [Mass/Vol] 0.55 mg/dL Normal 0.55-1.02 [facility] Comment on above: Result Comment: The validity of the calculated GFR GFRAA in patients over 70 years has not been determined. Clinical correlation is essential. Performed By: #### L [id number], [id number], M100.2200, L506.1000, L100.0100 #### [facility] [address] [place], [address] EST GFR - AA 139 mL/min Normal >60 [facility] Comment on above: Result Comment: Afri can Burmese GFR Calc Performed By: #### L [id number], [id number], M100.2200, L506.1000, L100.0100 #### [facility] [address] [place], [address] GAP 7 Normal 5-15 [facility] Comment on above: Performed By: #### L [id number], [id number], M100.2200, L506.1000, L100.0100 #### [facility] [address] [place], [address] GFR/1.73 sq M.predicted among non-blacks MDRD (S/P/Bld) [Vol rate/Area] 115 mL/min/{1.73_m2} Normal >60 [facility] Comment on above: Result Comment: Non- GFR Calc Performed By: #### L [id number], [id number], M100.2200, L506.1000, L100.0100 #### [facility] [address] [place], [address] Globulin (S) [Mass/Vol] 3.4 g/dL Normal 2.2-4.2 [facility] Comment on above: Performed By: #### L [id number], [id number], M100.2200, L506.1000, L100.0100 #### [facility] [address] [place], [address] Glucose [Mass/Vol] 155 mg/dL High 74-106 [facility] Comment on above: Result Comment: Fast ing Glucose result greater than or equal to 126 mg/dL suggests DIABETES MELLITUS per A.D.A. criteria. Performed By: #### L [id number], [id number], M100.2200, L506.1000, L100.0100 #### [facility] [address] [place], [address] Potassium [Moles/Vol] 4.1 mmol/L Normal 3.5-5.1 [facility] Comment on above: Performed By: #### L [id number], [id number], M100.2200, L506.1000, L100.0100 #### [facility] [address] [place], [address] Sodium [Moles/Vol] 138 mmol/L Normal 136-145 [facility] Comment on above: Performed By: #### L [id number], [id number], M100.2200, L506.1000, L100.0100 #### [facility] [address] [place], [address] T PROT 7.0 g/dL Normal 6.4-8.2 [facility] Comment on above: Performed By: #### L [id number], [id number], M100.2200, L506.1000, L100.0100 #### [facility] [address] [place], [address] Urea nitrogen [Mass/Vol] 13 mg/dL Normal 7-18 [facility] Comment on above: Performed By: #### L [id number], [id number], M100.2200, L506.1000, L100.0100 #### [facility] [address] [place], [address] Thyroid Stim Hormone (TSH)on 12-02-2023 TSH 2.18 uIU/mL Normal 0.358-3.74 [facility] Comment on above: Performed By: #### L [id number], [id number], M100.2200, L506.1000, L100.0100 #### [facility] [address] [place], [address] Vitamin D,25 Hydroxyon 12-01 Vitamin D 25-OH 29.6 ng/mL Normal [facility] Comment on above: Result Comment: [place] min D 25(OH) Status Range Deficiency <20 ng/mL (50nmol/L) Insufficiency 20 - 30 ng/mL (50 - 75 nmol/L) Sufficiency 30 - 100 ng/mL (75 - 250 nmol/L) Toxicity >100 ng/mL (>250 nmol/L) Performed By: #### L [id number], [id number], M100.2200, L506.1000, L100.0100 #### [facility] [address] [place], [address] Culture, urineOrdered By: Heath Hernandez on 08-04-2023 Bacteria identified Cx Nom (U) ESBL Escherichia coli [facility] Absolute lymphocyte countOrd ered By: Matt Hernandez on 06-02-2023 Lymphocytes Auto (Unsp spec) [#/Vol] 1.96 10*3/uL 0.83-4.51 [facility] Automated lymphocyte count a s percentage of total leukocytesOrdered By: Matt Hernandez on 06-02-2023 Lymphocytes/100 WBC Auto (Unsp spec) 28.7 % 19-41 [facility] Basophil percentageOrdered B y: Matt Hernandez on 06-02-2023 Basophils/100 WBC (Bld) 1.0 % 0-1 [facility] Bilirubin [Mass/Vol] 0.70 mg/dL 0.20-1.00 [facility] Comment on above: For patients on eltr ombopag therapy, use of Dimension [place] TBIL is not recommended. Chloride [Moles/Vol] 109 mmol/L 98-107 [facility] Eosinophils/100 WBC (Bld) 1.2 % 0-5 [facility] Glucose [Mass/Vol] 147 mg/dL 74-106 [facility] Comment on above: Fasting Glucose resu lt greater than or equal to 126 mg/dL suggests DIABETES MELLITUS per A.D.A. criteria. Hemoglobin (Bld) [Mass/Vol] 12.6 g/dL 12.0-15.0 [facility] Monocytes/100 WBC (Bld) 7.2 % 0-10 [facility] Neutrophils (Bld) [#/Vol] 4.2 10*3/uL 2.0-7.7 [facility] Neutrophils/100 WBC (Bld) 61.8 % 47-70 [facility] Potassium [Moles/Vol] 4.4 mmol/L 3.5-5.1 [facility] Protein [Mass/Vol] 7.0 g/dL 6.4-8.2 [facility] Sodium [Moles/Vol] 138 mmol/L 136-145 [facility] WBC (Bld) [#/Vol] 6.8 10*3/uL 4.4-11.0 [facility] Culture, urineOrdered By: Heath Hernandez on 06-02-2023 Bacteria identified Cx Nom (U) ESBL Escherichia coli [facility] Determination of erythrocyte mean corpuscular volume (MCV)Ordered By: Matt Hernandez on 06-02-2023 MCV (RBC) [Entitic vol] 88.7 fL 81-99 [facility] Erythrocyte distribution wid th ratioOrdered By: Matt Hernandez on 06-02-2023 Erythrocyte distribution width (RBC) [Ratio] 13.2 % 11.6-14.6 [facility] Erythrocyte distribution wid th standard deviationOrdered By: Matt Hernandez on 06-02-2023 Erythrocyte distribution width (RBC) [Entitic vol] 42.6 fL 35.1-43.9 [facility] Hematocrit Auto (Bld) [Volum e fraction]Ordered By: Matt Hernandez on 06-02-2023 Hematocrit (Bld) [Volume fraction] 40.9 % 37-47 [facility] Immature granulocytes/100 WB C Auto (Bld)Ordered By: Matt Hernandez on 06-02-2023 Immature granulocytes/100 WBC (Bld) 0.100 % 0.0-0.9 [facility] Comment on above: IG% - Immature Granu locytes (promyelocytes, myelocytes and metamyelocytes) > 1% indicates that a LEFT SHIFT is Present. Laboratory - Chemistry and C hemistry - challengeOrdered By: Matt Hernandez on 06-02-2023 Albumin/Globulin [Mass ratio] 1.2 {ratio} 0.9-2.4 [facility] ALP [Catalytic activity/Vol] 65 U/L 45-117 [facility] ALT [Catalytic activity/Vol] 22 U/L 13-56 [facility] CO2 [Moles/Vol] 25.0 mmol/L 21.0-32.0 [facility] Globulin (S) [Mass/Vol] 3.2 g/dL 2.2-4.2 [facility] Urea nitrogen/Creatinine [Mass ratio] 24.1 mg/mg 10-20 [facility] - Hematology and Cell countsOrdered By: Matt Hernandez on 06-02-2023 MCH (RBC) [Entitic mass] 27.3 pg 27.0-32.0 [facility] MCHC (RBC) [Mass/Vol] 30.8 g/dL 32-36 [facility] Nucleated RBC/100 WBC (Bld) [Ratio] 0 % 0-5 [facility] Platelets (Bld) [#/Vol] 245 10*3/uL 150-450 [facility] No Panel InformationOrdered By: Matt Hernandez on 06-02-2023 Estimated GFR (MDRD) Amer 142 mL/min >60 [facility] Comment on above: GFR Calc Estimated GFR (MDRD) Non-Af Amer 118 mL/min >60 [facility] Comment on above: Non- GFR Calc Vitamin D 25-Hydroxy 18.5 ng/mL [facility] Comment on above: Vitamin D 25(OH) Sta tus Range Deficiency <20 ng/mL (50nmol/L) Insufficiency 20 - 30 ng/mL (50 - 75 nmol/L) Sufficiency 30 - 100 ng/mL (75 - 250 nmol/L) Toxicity >100 ng/mL (>250 nmol/L) Platelet mean volume Geovany-Ec ker (Bld) [Entitic vol]Ordered By: Matt Hernandez on 06-02-2023 Platelet mean volume (Bld) [Entitic vol] 10.3 fL 6.2-12.0 [facility] RBC Auto (Bld) [#/Vol]Ordere d By: Matt Hernandez on 06-02-2023 RBC (Bld) [#/Vol] 4.61 10*6/uL 4.2-5.4 [facility] Serum or plasma calcium caroline urement (mass/volume)Ordered By: Matt Hernandez on 06-02-2023 Calcium [Mass/Vol] 9.2 mg/dL 8.5-10.1 [facility] Serum or plasma creatinine m easurement (mass/volume)Ordered By: Matt Hernandez on 06-02-2023 Creatinine [Mass/Vol] 0.54 mg/dL 0.55-1.02 [facility] Comment on above: The validity of the calculated GFR & GFRAA in patients over 70 years has not been determined. Clinical correlation is essential. Serum or plasma thyroid stim ulating hormone (TSH) measurement (units/volume)Ordered By: Matt Hernandez on 06-02-2023 TSH Qn 1.37 uIU/mL 0.358-3.74 [facility] Serum or plasma urea nitroge n measurement (mass/volume)Ordered By: Matt Hernandez on 06-02-2023 Urea nitrogen [Mass/Vol] 13 mg/dL 7-18 [facility] Thin prep Papanicolaou smear with manual screeningOrdered By: Matt Hernandez on 06-02-2023 Thin prep Papanicolaou smear with manual screening 3.8 g/dL 3.2-5.0 [facility] Thin prep Papanicolaou smear with manual screening 18 U/L 15-37 [facility] Thin prep Papanicolaou smear with manual screening 4 5-15 [facility] Absolute lymphocyte countOrd ered By: Dr. Hernandez on 09-02-2022 Lymphocytes Auto (Unsp spec) [#/Vol] 1.94 10*3/uL 0.83-4.51 [facility] Basophil percentageOrdered B y: Dr. Hernandez on 09-02-2022 Basophils/100 WBC (Bld) 1.2 % 0-1 [facility] Bilirubin [Mass/Vol] 0.30 mg/dL 0.20-1.00 [facility] Comment on above: For patients on eltr ombopag therapy, use of Dimension [place] TBIL is not recommended. Chloride [Moles/Vol] 106 mmol/L 98-107 [facility] Eosinophils/100 WBC (Bld) 1.6 % 0-5 [facility] Glucose [Mass/Vol] 140 mg/dL 74-106 [facility] Comment on above: Fasting Glucose resu lt greater than or equal to 126 mg/dL suggests DIABETES MELLITUS per A.D.A. criteria. Neutrophils (Bld) [#/Vol] 5.0 10*3/uL 2.0-7.7 [facility] Neutrophils/100 WBC (Bld) 64.8 % 47-70 [facility] Potassium [Moles/Vol] 4.2 mmol/L 3.5-5.1 [facility] Protein [Mass/Vol] 7.4 g/dL 6.4-8.2 [facility] Sodium [Moles/Vol] 139 mmol/L 136-145 [facility] WBC (Bld) [#/Vol] 7.6 10*3/uL 4.4-11.0 [facility] Blood erythrocytes count (nu mber/volume)Ordered By: Dr. Hernandez on 09-02-2022 RBC (Bld) [#/Vol] 4.68 10*6/uL 4.2-5.4 [facility] Blood hemoglobin measurement (mass/volume)Ordered By: Dr. Hernandez on 09-02-2022 Hemoglobin (Bld) [Mass/Vol] 13.1 g/dL 12.0-15.0 [facility] Blood lymphocytes/100 leukoc ytesOrdered By: Dr. Hernandez on 09-02-2022 Lymphocytes/100 WBC (Bld) 25.5 % 19-41 [facility] Blood monocytes/100 leukocyt esOrdered By: Dr. Hernandez on 09-02-2022 Monocytes/100 WBC (Bld) 6.6 % 0-10 [facility] Blood platelet mean volumeOr dered By: Dr. Hernandez on 09-02-2022 Platelet mean volume (Bld) [Entitic vol] 9.6 fL 6.2-12.0 [facility] Determination of erythrocyte mean corpuscular volume (MCV)Ordered By: Dr. Hernandez on 09-02-2022 MCV (RBC) [Entitic vol] 88.7 fL 81-99 [facility] Hematocrit Auto (Bld) [Volum e fraction]Ordered By: Dr. Hernandez on 09-02-2022 Hematocrit (Bld) [Volume fraction] 41.5 % 37-47 [facility] - Chemistry and C hemistry - challengeOrdered By: Dr. Hernandez on 09-02-2022 ALP [Catalytic activity/Vol] 79 U/L 45-117 [facility] ALT [Catalytic activity/Vol] 21 U/L 13-56 [facility] CO2 [Moles/Vol] 26.0 mmol/L 21.0-32.0 [facility] Globulin (S) [Mass/Vol] 3.6 g/dL 2.2-4.2 [facility] Urea nitrogen/Creatinine [Mass ratio] 28.9 mg/mg 10-20 [facility] - Hematology and Cell countsOrdered By: Dr. Hernandez on 09-02-2022 Erythrocyte distribution width (RBC) [Entitic vol] 41.5 fL 35.1-43.9 [facility] Erythrocyte distribution width (RBC) [Ratio] 13.0 % 11.6-14.6 [facility] Immature granulocytes/100 WBC (Bld) 0.300 % 0.0-0.9 [facility] Comment on above: IG% - Immature Granu locytes (promyelocytes, myelocytes and metamyelocytes) > 1% indicates that a LEFT SHIFT is Present. MCH (RBC) [Entitic mass] 28.0 pg 27.0-32.0 [facility] Nucleated RBC/100 WBC (Bld) [Ratio] 0 % 0-5 [facility] MCHC Auto (RBC) [Mass/Vol]Or dered By: Dr. Hernandez on 09-02-2022 MCHC (RBC) [Mass/Vol] 31.6 g/dL 32-36 [facility] No Panel InformationOrdered By: Dr. Hernandez on 09-02-2022 Estimated GFR (MDRD) Amer 138 mL/min >60 [facility] Comment on above: GFR Calc Estimated GFR (MDRD) Non-Af Amer 114 mL/min >60 [facility] Comment on above: Non- GFR Calc Thyroid Stimulating Hormone (TSH) 1.04 uIU/mL 0.358-3.74 [facility] Vitamin D 25-Hydroxy 30.8 ng/mL [facility] Comment on above: Vitamin D 25(OH) Sta tus Range Deficiency <20 ng/mL (50nmol/L) Insufficiency 20 - 30 ng/mL (50 - 75 nmol/L) Sufficiency 30 - 100 ng/mL (75 - 250 nmol/L) Toxicity >100 ng/mL (>250 nmol/L) Platelets bldOrdered By: Dr. Hernandez on 09-02-2022 Platelets (Bld) [#/Vol] 281 10*3/uL 150-450 [facility] Serum or plasma albumin caroline urement (mass/volume)Ordered By: Dr. Hernandez on 09-02-2022 Albumin [Mass/Vol] 3.8 g/dL 3.2-5.0 [facility] Serum or plasma albumin/glob ulin mass ratioOrdered By: Dr. Hernandez on 09-02-2022 Albumin/Globulin [Mass ratio] 1.1 {ratio} 0.9-2.4 [facility] Serum or plasma calcium caroline urement (mass/volume)Ordered By: Dr. Hernandez on 09-02-2022 Calcium [Mass/Vol] 9.1 mg/dL 8.5-10.1 [facility] Serum or plasma creatinine m easurement (mass/volume)Ordered By: Dr. Hernandez on 09-02-2022 Creatinine [Mass/Vol] 0.55 mg/dL 0.55-1.02 [facility] Comment on above: The validity of the calculated GFR & GFRAA in patients over 70 years has not been determined. Clinical correlation is essential. Serum or plasma urea nitroge n measurement (mass/volume)Ordered By: Dr. Hernandez on 09-02-2022 Urea nitrogen [Mass/Vol] 16 mg/dL 7-18 [facility] Thin prep Papanicolaou smear with manual screeningOrdered By: Dr. Hernandez on 09-02-2022 Thin prep Papanicolaou smear with manual screening 17 U/L 15-37 [facility] Thin prep Papanicolaou smear with manual screening 7 5-15 [facility] Absolute lymphocyte countOrd ered By: Dr. Hernandez on 05-31-2022 Lymphocytes Auto (Unsp spec) [#/Vol] 1.86 10*3/uL 0.83-4.51 [facility] Basophil percentageOrdered B y: Dr. Hernandez on 05-31-2022 Basophils/100 WBC (Bld) 0.7 % 0-1 [facility] Bilirubin [Mass/Vol] 0.30 mg/dL 0.20-1.00 [facility] Comment on above: For patients on eltr ombopag therapy, use of Dimension [place] TBIL is not recommended. Chloride [Moles/Vol] 105 mmol/L 98-107 [facility] Eosinophils/100 WBC (Bld) 1.0 % 0-5 [facility] Glucose [Mass/Vol] 172 mg/dL 74-106 [facility] Comment on above: Fasting Glucose resu lt greater than or equal to 126 mg/dL suggests DIABETES MELLITUS per A.D.A. criteria. Neutrophils (Bld) [#/Vol] 4.6 10*3/uL 2.0-7.7 [facility] Neutrophils/100 WBC (Bld) 65.5 % 47-70 [facility] Potassium [Moles/Vol] 4.2 mmol/L 3.5-5.1 [facility] Protein [Mass/Vol] 7.4 g/dL 6.4-8.2 [facility] Sodium [Moles/Vol] 139 mmol/L 136-145 [facility] WBC (Bld) [#/Vol] 7.0 10*3/uL 4.4-11.0 [facility] Blood erythrocytes count (nu mber/volume)Ordered By: Dr. Hernandez on 05-31-2022 RBC (Bld) [#/Vol] 4.82 10*6/uL 4.2-5.4 [facility] Blood hemoglobin measurement (mass/volume)Ordered By: Dr. Hernandez on 05-31-2022 Hemoglobin (Bld) [Mass/Vol] 13.9 g/dL 12.0-15.0 [facility] Blood lymphocytes/100 leukoc ytesOrdered By: Dr. Hernandez on 05-31-2022 Lymphocytes/100 WBC (Bld) 26.4 % 19-41 [facility] Blood monocytes/100 leukocyt esOrdered By: Dr. Hernandez on 05-31-2022 Monocytes/100 WBC (Bld) 6.1 % 0-10 [facility] Blood platelet mean volumeOr dered By: Dr. Hernandez on 05-31-2022 Platelet mean volume (Bld) [Entitic vol] 10.5 fL 6.2-12.0 [facility] Determination of erythrocyte mean corpuscular volume (MCV)Ordered By: Dr. Hernandez on 05-31-2022 MCV (RBC) [Entitic vol] 87.8 fL 81-99 [facility] Hematocrit Auto (Bld) [Volum e fraction]Ordered By: Dr. Hernandez on 05-31-2022 Hematocrit (Bld) [Volume fraction] 42.3 % 37-47 [facility] - Chemistry and C hemistry - challengeOrdered By: Dr. Hernandez on 05-31-2022 ALP [Catalytic activity/Vol] 90 U/L 45-117 [facility] ALT [Catalytic activity/Vol] 28 U/L 13-56 [facility] CO2 [Moles/Vol] 23.0 mmol/L 21.0-32.0 [facility] Globulin (S) [Mass/Vol] 3.5 g/dL 2.2-4.2 [facility] Urea nitrogen/Creatinine [Mass ratio] 27.5 mg/mg 10-20 [facility] - Hematology and Cell countsOrdered By: Dr. Hernandez on 05-31-2022 Erythrocyte distribution width (RBC) [Entitic vol] 40.3 fL 35.1-43.9 [facility] Erythrocyte distribution width (RBC) [Ratio] 12.6 % 11.6-14.6 [facility] Immature granulocytes/100 WBC (Bld) 0.300 % 0.0-0.9 [facility] Comment on above: IG% - Immature Granu locytes (promyelocytes, myelocytes and metamyelocytes) > 1% indicates that a LEFT SHIFT is Present. MCH (RBC) [Entitic mass] 28.8 pg 27.0-32.0 [facility] Nucleated RBC/100 WBC (Bld) [Ratio] 0 % 0-5 [facility] MCHC Auto (RBC) [Mass/Vol]Or dered By: Dr. Hernandez on 05-31-2022 MCHC (RBC) [Mass/Vol] 32.9 g/dL 32-36 [facility] No Panel InformationOrdered By: Dr. Hernandez on 05-31-2022 Estimated GFR (MDRD) Amer 114 mL/min >60 [facility] Comment on above: GFR Calc Estimated GFR (MDRD) Non-Af Amer 94 mL/min >60 [facility] Comment on above: Non- GFR Calc Thyroid Stimulating Hormone (TSH) 1.76 uIU/mL 0.358-3.74 [facility] Vitamin D 25-Hydroxy 22.9 ng/mL [facility] Comment on above: Vitamin D 25(OH) Sta tus Range Deficiency <20 ng/mL (50nmol/L) Insufficiency 20 - 30 ng/mL (50 - 75 nmol/L) Sufficiency 30 - 100 ng/mL (75 - 250 nmol/L) Toxicity >100 ng/mL (>250 nmol/L) Platelets bldOrdered By: Dr. Hernandez on 05-31-2022 Platelets (Bld) [#/Vol] 262 10*3/uL 150-450 [facility] Serum or plasma albumin caroline urement (mass/volume)Ordered By: Dr. Hernandez on 05-31-2022 Albumin [Mass/Vol] 3.9 g/dL 3.2-5.0 [facility] Serum or plasma albumin/glob ulin mass ratioOrdered By: Dr. Hernandez on 05-31-2022 Albumin/Globulin [Mass ratio] 1.1 {ratio} 0.9-2.4 [facility] Serum or plasma calcium caroline urement (mass/volume)Ordered By: Dr. Hernandez on 05-31-2022 Calcium [Mass/Vol] 9.2 mg/dL 8.5-10.1 [facility] Serum or plasma creatinine m easurement (mass/volume)Ordered By: Dr. Hernandez on 05-31-2022 Creatinine [Mass/Vol] 0.65 mg/dL 0.55-1.02 [facility] Comment on above: The validity of the calculated GFR & GFRAA in patients over 70 years has not been determined. Clinical correlation is essential. Serum or plasma urea nitroge n measurement (mass/volume)Ordered By: Dr. Hernandez on 05-31-2022 Urea nitrogen [Mass/Vol] 18 mg/dL 7-18 [facility] Thin prep Papanicolaou smear with manual screeningOrdered By: Dr. Hernandez on 05-31-2022 Thin prep Papanicolaou smear with manual screening 21 U/L 15-37 [facility] Thin prep Papanicolaou smear with manual screening 11 5-15 [facility] BASIC METABOLIC PANELon 10-0 Anion gap [Moles/Vol] 16 mmol/L Normal 0-19 [facility] Comment on above: Performed By: #### C SIGNALS INTELLIGENCE ANALYST #### Main Laboratory [address] [address] Calcium [Mass/Vol] Normal 8.5-10.4 [facility] Comment on above: Result Comment: 9.1 Performed at [address] [place] [address] Performed By: #### C SIGNALS INTELLIGENCE ANALYST #### Main Laboratory [address] [address] Chloride [Moles/Vol] 99 mmol/L Normal 97-107 [facility] Comment on above: Performed By: #### C SIGNALS INTELLIGENCE ANALYST #### Main Laboratory [address] [address] CO2 [Moles/Vol] 21 mmol/L Low 24-31 [facility] Comment on above: Performed By: #### C SIGNALS INTELLIGENCE ANALYST #### Main Laboratory [address] [address] Creatinine [Mass/Vol] 0.4 mg/dL Normal 0.4-1.6 [facility] Comment on above: Performed By: #### C SIGNALS INTELLIGENCE ANALYST #### [facility] [address] [place] [address] Glucose [Mass/Vol] 171 mg/dL High 65-99 [facility] Comment on above: Performed By: #### C SIGNALS INTELLIGENCE ANALYST #### [facility] [address] [place] [address] Potassium [Moles/Vol] 3.8 mmol/L Normal 3.4-5.1 [facility] Comment on above: Performed By: #### C SIGNALS INTELLIGENCE ANALYST #### [facility] [address] [place] [address] Sodium [Moles/Vol] 136 mmol/L Normal 133-145 [facility] Comment on above: Performed By: #### C SIGNALS INTELLIGENCE ANALYST #### [facility] [place] [address] [place] [address] Urea nitrogen [Mass/Vol] 6 mg/dL Low 8-25 [facility] Comment on above: Performed By: #### C SIGNALS INTELLIGENCE ANALYST #### [facility] [address] [address] [place] [address] Urea nitrogen/Creatinine [Mass ratio] 15.0 RATIO Normal 8-21 [facility] Comment on above: Performed By: #### C SIGNALS INTELLIGENCE ANALYST #### [facility] [address] [address] [place] [address] CBC with Diffon 01-31-2019 AB IMMATURE NEUT 0.03 K/UL Normal 0.0-0.1 [facility] Comment on above: Performed By: #### C SIGNALS INTELLIGENCE ANALYST #### [facility] [address] [place] [address] ABS BASO 0.03 K/UL Normal 0.00-0.22 [facility] Comment on above: Performed By: #### C SIGNALS INTELLIGENCE ANALYST #### [facility] [address] [place] [address] ABS EOS 0.01 K/UL Normal 0-0.45 [facility] Comment on above: Performed By: #### C SIGNALS INTELLIGENCE ANALYST #### [facility] [address] [place] [address] ABS NEUTROPHILS 9.61 K/UL High 1.8-7.7 [facility] Comment on above: Performed By: #### C SIGNALS INTELLIGENCE ANALYST #### [address] [address] ABS.NEUT.CALCULATED Normal [facility] Comment on above: Result Comment: 9 Performed at [address] [place] [address] Performed By: #### C SIGNALS INTELLIGENCE ANALYST #### [address] [address] Basophils/100 WBC (Bld) 0.30 % Normal 0-1 [facility] Comment on above: Performed By: #### C SIGNALS INTELLIGENCE ANALYST #### [address] [address] DIFF TYPE AUTO DIFF Normal [facility] Comment on above: Performed By: #### C SIGNALS INTELLIGENCE ANALYST #### [address] [address] Eosinophils/100 WBC (Bld) 0.10 % Normal 0-3 [facility] Comment on above: Performed By: #### C SIGNALS INTELLIGENCE ANALYST #### [address] [address] Erythrocyte distribution width (RBC) [Ratio] 12.9 % Normal 11.7-15.0 [facility] Comment on above: Performed By: #### C SIGNALS INTELLIGENCE ANALYST #### [address] [address] Hematocrit (Bld) [Volume fraction] 40.9 % Normal 36-44 [facility] Comment on above: Performed By: #### C SIGNALS INTELLIGENCE ANALYST #### [address] [address] Hemoglobin (Bld) [Mass/Vol] 13.3 g/dL Normal 12.0-15.0 [facility] Comment on above: Performed By: #### C SIGNALS INTELLIGENCE ANALYST #### [address] [address] Lymphocytes (Bld) [#/Vol] 0.66 10*3/uL Low 1.2-3.2 [facility] Comment on above: Performed By: #### C SIGNALS INTELLIGENCE ANALYST #### [address] [address] Lymphocytes/100 WBC (Bld) 6.00 % Low 20-40 [facility] Comment on above: Performed By: #### C SIGNALS INTELLIGENCE ANALYST #### [facility] [address] [address] [place] [address] MCH (RBC) [Entitic mass] 29.3 pg Normal 26-34 [facility] Comment on above: Performed By: #### C SIGNALS INTELLIGENCE ANALYST #### [facility] [address] [address] [place] [address] MCHC (RBC) [Mass/Vol] 32.5 % Normal 31-37 [facility] Comment on above: Performed By: #### C SIGNALS INTELLIGENCE ANALYST #### [facility] [address] [address] [place] [address] MCV (RBC) [Entitic vol] 90.1 fL Normal 80-100 [facility] Comment on above: Performed By: #### C SIGNALS INTELLIGENCE ANALYST #### [address] [place] [address] [place] [address] MEAN PLT VOL 10.3 CU Normal 7.0-12.6 [facility] Comment on above: Performed By: #### C SIGNALS INTELLIGENCE ANALYST #### [address] [address] [place] [address] Monocytes (Bld) [#/Vol] 0.62 10*3/uL Normal 0-0.8 [facility] Comment on above: Performed By: #### C SIGNALS INTELLIGENCE ANALYST #### [address] [place] [address] [place] [address] Monocytes/100 WBC (Bld) 5.70 % Normal 0-8 [facility] Comment on above: Performed By: #### C SIGNALS INTELLIGENCE ANALYST #### [place] [address] [place] [address] Neutrophils/100 WBC (Bld) 0.30 % Normal 0.0-1.0 [facility] Comment on above: Performed By: #### C SIGNALS INTELLIGENCE ANALYST #### [place] [address] [place] [address] Neutrophils/100 WBC (Bld) 87.60 % High 50-70 [facility] Comment on above: Performed By: #### C SIGNALS INTELLIGENCE ANALYST #### [facility] [address] [place] [address] [place] [address] NRBC'S 0 /100 WBC Normal 0 [facility] Comment on above: Performed By: #### C SIGNALS INTELLIGENCE ANALYST #### [facility] [address] [place] [address] Platelets (Bld) [#/Vol] 215 10*3/uL Normal 150-450 [facility] Comment on above: Performed By: #### C SIGNALS INTELLIGENCE ANALYST #### [place] [address] [place] [address] RBC (Bld) [#/Vol] 4.54 M/UL Normal 4.0-4.9 [facility] Comment on above: Performed By: #### C SIGNALS INTELLIGENCE ANALYST #### [place] [address] [place] [address] RDW-SD 42.3 FL Normal 37.0-54.0 [facility] Comment on above: Performed By: #### C SIGNALS INTELLIGENCE ANALYST #### [address] [place] [address] [place] [address] WBC (Bld) [#/Vol] 11.0 10*3/uL Normal 4.5-11.0 [facility] Comment on above: Performed By: #### C SIGNALS INTELLIGENCE ANALYST #### [address] [place] [address] [place] [address] HEMOGLOBIN A1con 01-31-2019 HbA1c (Bld) [Mass fraction] High 4.0-6.0 [facility] Comment on above: Result Comment: 6.3 Hemoglobin A1C levels are related to mean blood glucose during the preceding 2-3 months. The relationship table below may be used as a general guide. Each 1% increase in HGB A1C is a reflection of an increase in mean glucose of approximately 30 mg/dl. Reference: Diabetes Care, volume 29, supplement 1 2005 HGB A1C ................. Approx. Mean Glucose 6% ............................... 120 mg/dl 7% ............................... 150 mg/dl 8% ............................... 180 mg/dl 9% ............................... 210 mg/dl 10% ............................... 240 mg/dl Performed at [address] [address] Performed By: #### C SIGNALS INTELLIGENCE ANALYST #### [address] [address] POCT GLUCOSEon 01-31-2019 Glucose [Mass/Vol] 154 mg/dL High 65-99 [facility] Comment on above: Performed By: #### C SIGNALS INTELLIGENCE ANALYST #### [address] [address] Glucose [Mass/Vol] 167 mg/dL High 65-99 [facility] Comment on above: Performed By: #### C SIGNALS INTELLIGENCE ANALYST #### [address] [address] Glucose [Mass/Vol] 174 mg/dL High 65-99 [facility] Comment on above: Performed By: #### C SIGNALS INTELLIGENCE ANALYST #### [address] [address] Glucose [Mass/Vol] 153 mg/dL High 65-99 [facility] Comment on above: Performed By: #### C SIGNALS INTELLIGENCE ANALYST #### [address] [address] Glucose [Mass/Vol] 143 mg/dL High 65-99 [facility] Comment on above: Performed By: #### C SIGNALS INTELLIGENCE ANALYST #### [address] [address] POCT GLUCOSEon 01-30-2019 Glucose [Mass/Vol] 182 mg/dL High 65-99 [facility] Comment on above: Performed By: #### C SIGNALS INTELLIGENCE ANALYST #### Main Laboratory [facility] [address] [place] [address] Glucose [Mass/Vol] 163 mg/dL High 65-99 [facility] Comment on above: Performed By: #### P CGL #### [facility] [address] [place] [address] Glucose [Mass/Vol] 165 mg/dL High 65-99 [facility] Comment on above: Performed By: #### P CGL #### [facility] [address] [place] [address] Glucose [Mass/Vol] 132 mg/dL High 65-99 [facility] Comment on above: Performed By: #### P CGL #### [facility] [address] [place] [address] Glucose [Mass/Vol] 148 mg/dL High 65-99 [facility] Comment on above: Performed By: #### P CGL #### [facility] [address] [place] [address] UGI W KUBon 01-30-2019 UGI W KUB *FINAL Date of Service: 01/30/2019 09:55 Adm #: [id number] Reading Dr:YANICK VILLARREAL Signoff Dr: YANICK VILLARREAL PROCEDURE: UGI W KUB - WXR 0132 REASON FOR EXAM: Post Laparoscopic- LIZANDRO EN Y- Gastric Bypass RESULT: EXAM: Water soluble, single contrast Upper GI with KUB CLINICAL HISTORY: One day status post Lizandro-en-Y gastric bypass. Total fluoroscopy time: 1 minutes 21 seconds, images: 12, DAP: 130.8 mGy. Oral Contrast: 22.5 ml Omnipaque 350 FINDINGS: KUB: Exam is targeted to the lower chest and upper abdomen. Visualized abdominal gas pattern is non-specific. Surgical clips are present within the upper abdomen on the left. There is a lumbar dextroscoliosis with marked spurring. Fluoroscopic and radiographic evaluation of the thoracic esophagus is within normal limits. There is prompt passage of contrast material into the gastric pouch into the inferior limb of the Lizandro-en-Y gastric bypass. There is no evidence for obstruction or leak.. IMPRESSION: Lizandro-en-Y gastric bypass without evidence for obstruction or leak. This report has been produced using speech recognition. Original Interpreting Physician: YANICK VILLARREAL M.D. Original Transcribed by/Date: PSCB Jan 30 2019 10:09A Original Electronically Signed by/Date: YANICK VILLARREAL M.D. Jan 30 2019 10:09A Addendum Interpreting Physician: Addendum Transcribed by/Date: NO ADDENDUM Addendum Electronically Signed by/Date: Normal [facility] PLATELETon 01-29-2019 Platelets (Bld) [#/Vol] Normal 150-450 [facility] Comment on above: Result Comment: 226 Performed at [address] [address] Performed By: #### P LT #### [address] [address] POCT GLUCOSEon 01-29-2019 Glucose [Mass/Vol] 221 mg/dL High 65-99 [facility] Comment on above: Performed By: #### P CGL #### [address] [address] Glucose [Mass/Vol] 207 mg/dL High 65-99 [facility] Comment on above: Performed By: #### P CGL #### [address] [address] Glucose [Mass/Vol] 134 mg/dL High 65-99 [facility] Comment on above: Performed By: #### P CGL #### [address] [address] CBC with Diffon 01-09-2019 AB IMMATURE NEUT 0.02 K/UL Normal 0.0-0.1 [facility] Comment on above: Performed By: #### C BCD #### [facility] [address] [address] ABS BASO 0.08 K/UL Normal 0.00-0.22 [facility] Comment on above: Performed By: #### C BCD #### [facility] [address] [address] ABS EOS 0.05 K/UL Normal 0-0.45 [facility] Comment on above: Performed By: #### C BCD #### [facility] [address] [address] [facility] [address] ABS NEUTROPHILS 6.73 K/UL Normal 1.8-7.7 [facility] Comment on above: Performed By: #### C BCD #### [facility] [address] [address] [place] [address] ABS.NEUT.CALCULATED Normal [facility] Comment on above: Result Comment: 6.73 Performed at [place] [address] [place] [address] Performed By: #### C BCD #### [address] [address] [place] [address] Basophils/100 WBC (Bld) 0.80 % Normal 0-1 [facility] Comment on above: Performed By: #### C BCD #### [place] [address] [place] [address] DIFF TYPE AUTO DIFF Normal [facility] Comment on above: Performed By: #### C BCD #### [place] [address] [address] [facility] [address] Eosinophils/100 WBC (Bld) 0.50 % Normal 0-3 [facility] Comment on above: Performed By: #### C BCD #### [place] [address] [address] [facility] [address] Erythrocyte distribution width (RBC) [Ratio] 13.0 % Normal 11.7-15.0 [facility] Comment on above: Performed By: #### C BCD #### [address] [address] [place] [address] Hematocrit (Bld) [Volume fraction] 45.4 % High 36-44 [facility] Comment on above: Performed By: #### C BCD #### [facility] [place] [address] [address] [facility] [address] Hemoglobin (Bld) [Mass/Vol] 14.4 g/dL Normal 12.0-15.0 [facility] Comment on above: Performed By: #### C BCD #### [address] [address] [place] [address] Lymphocytes (Bld) [#/Vol] 2.33 10*3/uL Normal 1.2-3.2 [facility] Comment on above: Performed By: #### C BCD #### [facility] [place] [address] [place] [address] Lymphocytes/100 WBC (Bld) 24.00 % Normal 20-40 [facility] Comment on above: Performed By: #### C BCD #### [facility] [address] [place] [address] [place] [address] MCH (RBC) [Entitic mass] 29.2 pg Normal 26-34 [facility] Comment on above: Performed By: #### C BCD #### [facility] [address] [place] [address] [place] [address] MCHC (RBC) [Mass/Vol] 31.7 % Normal 31-37 [facility] Comment on above: Performed By: #### C BCD #### [address] [address] [place] [address] MCV (RBC) [Entitic vol] 92.1 fL Normal 80-100 [facility] Comment on above: Performed By: #### C BCD #### [address] [address] [place] [address] MEAN PLT VOL 10.8 CU Normal 7.0-12.6 [facility] Comment on above: Performed By: #### C BCD #### [address] [place] [address] [place] [address] Monocytes (Bld) [#/Vol] 0.48 10*3/uL Normal 0-0.8 [facility] Comment on above: Performed By: #### C BCD #### [address] [address] [place] [address] Monocytes/100 WBC (Bld) 5.00 % Normal 0-8 [facility] Comment on above: Performed By: #### C BCD #### [address] [place] [address] [place] [address] Neutrophils/100 WBC (Bld) 69.50 % Normal 50-70 [facility] Comment on above: Performed By: #### C BCD #### [facility] [address] [place] [address] Neutrophils/100 WBC (Bld) 0.20 % Normal 0.0-1.0 [facility] Comment on above: Performed By: #### C BCD #### [facility] [address] [place] [address] NRBC'S 0 /100 WBC Normal 0 [facility] Comment on above: Performed By: #### C BCD #### [address] [place] [address] [place] [address] Platelets (Bld) [#/Vol] 287 10*3/uL Normal 150-450 [facility] Comment on above: Performed By: #### C BCD #### [address] [address] [place] [address] RBC (Bld) [#/Vol] 4.93 M/UL High 4.0-4.9 [facility] Comment on above: Performed By: #### C BCD #### [address] [address] [place] [address] RDW-SD 44.2 FL Normal 37.0-54.0 [facility] Comment on above: Performed By: #### C BCD #### [address] [address] [place] [address] WBC (Bld) [#/Vol] 9.7 10*3/uL Normal 4.5-11.0 [facility] Comment on above: Performed By: #### C BCD #### [address] [place] [address] [place] [address] COMPREHENSIVE METABOLIC PANE Roladn 01-09-2019 Albumin [Mass/Vol] 4.8 g/dL Normal 3.5-5.0 [facility] Comment on above: Performed By: #### C SIGNALS INTELLIGENCE ANALYST #### [address] [address] [place] [address] Albumin/Globulin [Mass ratio] 1.6 {ratio} Normal 1.5-3.0 [facility] Comment on above: Performed By: #### C SIGNALS INTELLIGENCE ANALYST #### [address] [address] [place] [address] ALP [Catalytic activity/Vol] 66 U/L Normal 35-125 [facility] Comment on above: Performed By: #### C SIGNALS INTELLIGENCE ANALYST #### [facility] [address] [place] [address] ALT [Catalytic activity/Vol] 17 U/L Normal 5-40 [facility] Comment on above: Performed By: #### C SIGNALS INTELLIGENCE ANALYST #### [facility] [address] [place] [address] Anion gap [Moles/Vol] 18 mmol/L Normal 0-19 [facility] Comment on above: Performed By: #### C SIGNALS INTELLIGENCE ANALYST #### [facility] [address] [place] [address] AST [Catalytic activity/Vol] 22 U/L Normal 5-40 [facility] Comment on above: Performed By: #### C SIGNALS INTELLIGENCE ANALYST #### [facility] [place] [address] [place] [address] Bilirubin [Mass/Vol] 0.3 mg/dL Normal 0.1-1.2 [facility] Comment on above: Performed By: #### C SIGNALS INTELLIGENCE ANALYST #### [facility] [address] [place] [address] Calcium [Mass/Vol] 10.4 mg/dL Normal 8.5-10.4 [facility] Comment on above: Performed By: #### C SIGNALS INTELLIGENCE ANALYST #### [facility] [address] [place] [address] Chloride [Moles/Vol] 100 mmol/L Normal 97-107 [facility] Comment on above: Performed By: #### C SIGNALS INTELLIGENCE ANALYST #### Main Laboratory [facility] [address] [place] [address] CO2 [Moles/Vol] 21 mmol/L Low 24-31 [facility] Comment on above: Performed By: #### C SIGNALS INTELLIGENCE ANALYST #### [facility] [address] [place] [address] Creatinine [Mass/Vol] 0.6 mg/dL Normal 0.4-1.6 [facility] Comment on above: Performed By: #### C SIGNALS INTELLIGENCE ANALYST #### Main Laboratory [place] [address] [address] GFR/1.73 sq M.predicted MDRD (S/P/Bld) [Vol rate/Area] Normal [facility] Comment on above: Result Comment: 105 GFR ml/min/1.73m2 Stage ----- 90 1 60-89 2 30-59 3 15-29 4 <15 5 For -Americans, multiply EGFR result by 1.210 Calculation not validated for patients under 18 years of age. Performed at [address] [address] Performed By: #### C SIGNALS INTELLIGENCE ANALYST #### [address] [address] Globulin (S) [Mass/Vol] 3.0 g/dL Normal 1.9-3.7 [facility] Comment on above: Performed By: #### C SIGNALS INTELLIGENCE ANALYST #### [address] [address] Glucose [Mass/Vol] 104 mg/dL High 65-99 [facility] Comment on above: Performed By: #### C SIGNALS INTELLIGENCE ANALYST #### [address] [address] Potassium [Moles/Vol] 4.0 mmol/L Normal 3.4-5.1 [facility] Comment on above: Performed By: #### C SIGNALS INTELLIGENCE ANALYST #### [address] [address] Protein [Mass/Vol] 7.8 g/dL Normal 5.9-7.9 [facility] Comment on above: Performed By: #### C SIGNALS INTELLIGENCE ANALYST #### [facility] [address] [address] Sodium [Moles/Vol] 139 mmol/L Normal 133-145 [facility] Comment on above: Performed By: #### C SIGNALS INTELLIGENCE ANALYST #### [facility] [address] [address] Urea nitrogen [Mass/Vol] 22 mg/dL Normal 8-25 [facility] Comment on above: Performed By: #### C SIGNALS INTELLIGENCE ANALYST #### [facility] [place] [id number] [place] [address] Urea nitrogen/Creatinine [Mass ratio] 36.7 RATIO High 8-21 [facility] Comment on above: Performed By: #### C SIGNALS INTELLIGENCE ANALYST #### [facility] [address] [address] Encounters Encounter Date Encounter Type Care Provider Facility Start: 11-01-2024 End: 11-01-[address] Matt Hernandez MD Work Phone: -Cat Scan [facility] Start: 11-01-2024 End: 11-01-[address] Matt Hernandez MD -Cat Scan [facility] Work Phone: Start: 11-01-2024 End: 11-01-2024 ambulatory [facility] Facility:[facility] Start: 10-15-2024 End: 10-15-[address] Matt Hernandez MD Work Phone: [facility] Work Phone: Start: 10-15-2024 End: 10-15-[address] Matt Hernandez MD -Laboratory Specimen Work Phone: Start: 10-15-2024 End: 10-15-2024 ambulatory [facility] Facility:[facility] Start: 06-04-2024 End: 06-04-2024 ambulatory [facility] Facility:[facility] Start: 12-02-2023 End: 12-02-2023 ambulatory [facility] Facility:[facility] Start: 08-04-2023 End: 08-04-2023 ambulatory [facility] Work Phone: Start: 08-04-2023 End: 08-04-2023 Patient encounter procedure [facility]-Laboratory, Specimen Work Phone: Start: 06-02-2023 End: 06-02-2023 Patient encounter procedure [facility]Laboratory Work Phone: Start: 11-29-2022 End: 11-29-2022 ambulatory [facility] Work Phone: Start: 11-29-2022 End: 11-29-2022 Discharged Recurring [facility]-Nutritional Services Work Phone: Start: 09-02-2022 End: 09-02-2022 ambulatory [facility] Work Phone: Start: 09-02-2022 End: 09-02-2022 Patient encounter procedure [facility]Laboratory Start: 05-31-2022 End: 05-31-2022 ambulatory [facility] Work Phone: Start: 05-31-2022 End: 05-31-2022 Patient encounter procedure [facility]-Laboratory, Phy Office 3rd Flr Procedures Date Procedure Procedure Detail Performing Clinician Start: 11-01-2024 CT of abdomen and pelvis without contrast Dr. Matt Hernandez MD Work Phone: Start: 10-15-[address] Matt Hernandez MD Work Phone: Start: 08-04-2023 Urine culture Start: 06-02-2023 Urine culture H/O: surgery H/O left wrist surgery H/O: tubal ligation H/O tubal ligation History of appendectomy History of append ectomy Payers Date Payer Category Payer Medicare [id number] 2023 Self-pay [id number] Medicare [id number] [facility] [id number] Self-pay [id number] Unknown [id number] Unknown [id number] Unknown [id number] Unknown [id number] Unknown [id number] Social History Date Type Detail Facility Start: 09-27-2018 End: 09-27-2018 Tobacco smoking status ILIS Unknown if ever smoked [facility] Start: 09-27-2018 None [facility] Start: 09-27-2018 Alone [facility] Start: 1950 Sex Assigned At Female W [facility] Start: 09-27-2018 Tobacco smoking stat us ILIS Ex-smoker (finding) [facility] Radiology Diagnostic study note 11-01-2024 Note Date & Type Note Facility 11-01-2024 Radiology Diagnostic study note [facility] Imaging Services [address] [place] [address] Abdomen/Pelvis without Cont MR#: [id number] Acct: [id number] Name: OSIEL MERINO Rep #: [id number] : 1950 F 74 From: Lebron Parr MD PCP: Dr. Matt Hernandez MD Status: REG C NAKUL Study:Abdomen/Pelvis without Cont Date of Exa m: 11/01/24 Exam# [id number] Ordering Dr: Matt Hernandez MD PROCEDURE: ABDOMEN/PELVIS WITHOUT CONT 11/01/2024 REASON FOR EXAM: L FLANK PAIN TECHNIQUE: ABDOMEN/PELVIS WITHOUT CONT Noncontrast technique limits evaluation of the abdominal and pelvic viscera. Coronal and Sagittal reconstruction series were provided. One or more dose reduction techniques were used (e.g., Automated exposure control, adjustment of the mA and/or kV according to patient size, use of iterative reconstruction technique). RADIATION DOSE SUMMARY: CTDlvol: 13.01 mGy DLP: 443.07 mGycm COMPARISON: None FINDINGS: Lung bases: Dependent atelectasis with peripheral honeycombing and fibrotic scarring Liver: Normal size. No obvious mass. Gallbladder: Unremarkable Spleen: Normal size. 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 Pancreas: Normal size. No surrounding inflammation. Adrenals: Unremarkable Kidneys: No obstructive uropathy or suspicious solid renal lesion, simple cortical cysts, no specific follow-up needed. Bladder: Unremarkable Reproductive Organs: Likely surgically absent Bowel: Bowel loops are unremarkable aside from retained stool. No CT evidence of acute inflammation there are scattered colonic diverticula without CT evidence of acute diverticulitis. Appendix: Not visualized No free intraperitoneal fluid, air, or suspicious adenopathy. Postsurgical changes noted in the stomach, no anastomotic leak Bones: Bony structures show degenerative change CT/Abdomen/Pelvis without Cont IMPRESSION: No suspicious solid organ abnormality, simple cortical cysts in both kidneys, nospecific follow-up needed. Retained stool with scattered colonic diverticula, no CT evidence of acute diverticulitis. No free intraperitoneal fluid, air, or suspicious adenopathy Fibrotic scarring in the lung bases with peripheral honeycombing Reading Location: [id number] CC: Dr. Matt Hernandez MD ~ Lineman A Class: Signed [facility] Evaluation note Note Date & Type Note Facility Evaluation note No assessment information availa ble [facility] Work Phone: Reason for referral (narrative) Note Date & Type Note Facility Reason for referral (narrative) No reason for referral information available [facility] Work Phone: Summary Purpose Family History No Family History Records Found Relationship Condition Age at Onset Recorded Date/T steph father Diabetes mellitus Unknown Myocardial infarction Unknown mother Diabetes mellitus Unknown Chronic obstructive pulmonary disease Unk nown Hypertension Unknown Cardiac disease Unknown Advance Directives No Advanced Directives Records Found Advance Directive Response Recorded Date/ Time Living Will No September 27, 2018 8 :03pm Power of Mobile Service Rv Technician No September 27, 2018 8:03pm Advance Directive Response Recorded Date/ Time Living Will No September 27, 2018 9 :03pm Power of Mobile Service Rv Technician No September 27, 2018 9:03pm Chief Complaint and Reason for Visit Chief Complaint DINING WITH DIABETES Chief Complaint Admit Date KIDNEY STONE PROTOCAL November 01, 2024 3:1 4pm Additional Source Comments INFORMATION SOURCE (unrecogn ized section and content) DATE CREATED AUTHOR 01/30/2019 [employer] DATE CREATED AUTHOR AUTHOR'S ORGANIZ ATION 02/02/2019 [employer] DATE CREATED AUTHOR AUTHOR'S ORGANIZ ATION 11/12/2024 [facility] Care Teams (unrecognized sec tion and content) Team Status: Active Member Role Status Dates Dr. Matt Hernandez MD Family Provider Active Dr. Matt Hernandez MD Primary Care Provider Active Team Status: Inactive Member Role Status Dates Dr. Matt Hernandez MD Primary Care Provider, Attending Provider Active Team Status: Inactive Member Role Status Dates Dr. Matt Hernandez MD Primary Care Provi kelsea, Attending Provider, Referring Provider Active Team Status: Inactive Member Role Status Dates Dr. Matt Hernandez MD Primary Care Provider Active Self Referred Attending Provider Active Team Status: Inactive Member Role Status Dates Dr. Matt Hernandez MD Primary Care Provider Active Start: October 15, 2024 End: October 15, 2024 Dr. Matt Hernandez MD Attending Provider Active Start: October 15, 2024 End: October 15, 2024 Dr. Matt Hernandez MD Referring Provider Active Start: October 15, 2024 End: October 15, 2024 Team Status: Active Member Role/Relationship Status Dates Dr. Matt Hernandez MD Primary Care Provider Active Team Status: Inactive Member Role/Relationship Status Dates Dr. Matt Hernandez MD Primary Care Provider Active Start: October 15, 2024 End: October 15, 2024 Dr. Matt Hernandez MD Attending Provider Active Start: October 15, 2024 End: October 15, 2024 Dr. Matt Hernandez MD Referring Provider Active Start: October 15, 2024 End: October 15, 2024 Team Status: Inactive Member Role/Relationship Status Dates Dr. Matt Hernandez MD Primary Care Provider Active Start: November 01, 2024 End: November 01, 2024 Dr. Matt Hernandez MD Attending Provider Active Start: November 01, 2024 End: November 01, 2024 Dr. Matt Hernandez MD Referring Provider Active Start: November 01, 2024 End: November 01, 2024 Goals (unrecognized section and content) Goals may be documented in a n alternate sectionGoals may be documented in an alternate sectionGoals may be documented in an alternate sectionGoals may be documented in an alternate sectionGoals may be documented in an alternate sectionGoals may be documented in an alternate section FOR RECORDS PERTAINING TO PATIENTS WHO ARE OR HAVE BEEN ENROLLED IN A CHEMICAL DEPENDENCY/SUBSTANCEABUSE PROGRAM, SOME INFORMATION MAY BE OMITTED. This clinical summary was aggregated from multiple sources. Caution should be exercised in using it in the provision of clinical care. This summary normalizes information from multiple sources, and as a consequence, information in this document may materially change the coding, format and clinical context of patient data. In addition, data may be omitted in some cases. CLINICAL DECISIONS SHOULD BE BASED ON THE PRIMARY CLINICAL RECORDS. [facility] [employer] [facility]. provides no warranty or guarantee of the accuracy or completeness of information in this document.
[2024-12-06 09:50] LABS: AST(SGOT) 27 U/L (<=31); Alanine Aminotransfer ALT/SGPT 21 U/L (<=34); Albumin, Serum 4.4 g/dL (3.4-4.8); Alkaline Phosphatase 79 U/L (35-104); Anion Gap 13 (5-15); BUN 21 mg/dL (4-19); BUN/Creat Ratio 34.8 RATIO (10-20); Calcium,Total 9.6 mg/dL (7.6-11.0); Carbon Dioxide 22.4 mmol/L (21.0-32.0); Chloride 102 mmol/L (98-108); Globulin 2.8 g/dL (2.2-4.2); Glucose 131 mg/dL (70-99); Potassium 4.4 mmol/L (3.3-5.1); Vitamin D,25 Hydroxy 21.0 ng/mL (30-100)
[2024-12-06 16:52] LABS: Xtra Tube Kwok EXTRA TUBE
== END | disposition home or self-care (01) ==
LOC: POLAB3 08:51
PROVIDERS: PCP Family Medicine Geriatric Medicine; Visit Provider Family Medicine Geriatric Medicine
DX: I10 Essential (primary) hypertension (principal); E78.5 Hyperlipidemia, unspecified; E55.9 Vitamin D deficiency, unspecified
CPT/HCPCS: 36415; 80053; 82306; 84443; 85025